=== PATIENT | female | born 1980 | race Caucasian/White ===

== ENCOUNTER 2017-06-18 14:51 | Emergency (ER) | payer OTHER ==
[2017-06-18 15:08] VITALS: RESP 18
--- NOTE | 2017-06-18 16:16 | ED ---
General Adult HPI - General Chief complaint: Allergic Reaction Stated complaint: poss allergic reaction to antibiotic Time Seen by Provider: 06/18/17 16:02 Source: patient, RN notes reviewed Mode of arrival: ambulatory Limitations: no limitations - History of Present Illness Initial comments: 36-year-old female presents emergency Department with chief complaint of possible ALLERGIC reaction. Patient states she was started on Keflex, Flonase, prednisone and Zyrtec yesterday. She states she went to [facility] was started on this for sinus infection. She states prior to that she had 3 days of nasal congestion. Patient states she felt worse so she went there for treatment. Patient reports ALLERGY to penicillin products. Patient denies any difficulty breathing or deploy saw this time. She states that she does feel some tingling of her tongue and lips. She states that she's taken 5 doses of Keflex. She has used Flonase, prednisone and Zyrtec on the past with no problems. - Related Data Home Medications Medication Instructions Recorded Confirmed No Known Home Medications [No 06/18/17 06/18/17 Known Home Medications] Allergies Allergy/AdvReac Type Severity Reaction Status Date / Time Penicillins Allergy Unknown Verified 06/18/17 15:08 Childhood Review of Systems ROS Statement: Those systems with pertinent positive or pertinent negative responses have been documented in the HPI. ROS Other: All systems not noted in ROS Statement are negative. Past Medical History Additional Past Medical History / Comment(s): pcos History of Any Multi-Drug Resistant Organisms: None Reported Past Surgical History: Section, Cholecystectomy Past Psychological History: No Psychological Hx Reported Smoking Status: Never smoker Past Alcohol Use History: Rare Past Drug Use History: None Reported General Exam Limitations: no limitations General appearance: alert, in no apparent distress Head exam: Present: atraumatic, normocephalic, normal inspection Eye exam: Present: normal appearance, PERRL, EOMI. Absent: scleral icterus, conjunctival injection, periorbital swelling ENT exam: Present: mucous membranes moist, TM's normal bilaterally, normal external ear exam. Absent: normal exam, normal oropharynx (Mild postnasal drainage swan secretions well there is no edema of the lips or tongue) Neck exam: Present: normal inspection, full ROM. Absent: tenderness, meningismus, lymphadenopathy Respiratory exam: Present: normal lung sounds bilaterally. Absent: respiratory distress, wheezes, rales, rhonchi, stridor Cardiovascular Exam: Present: regular rate, normal rhythm, normal heart sounds. Absent: systolic murmur, diastolic murmur, rubs, gallop, clicks Neurological exam: Present: alert, oriented X3, CN II-XII intact Course Vital Signs 06/18/17 15:04 Temperature 97.7 F Pulse Rate 102 H Respiratory 18 Rate Blood Pressure 138/75 O2 Sat by Pulse 97 Oximetry Medical Decision Making - Medical Decision Making 36-year-old female presented for tingling of her lips and tongue concern for ALLERGIC reaction to Keflex. She has tolerated all her medications in the past. Did explain that she is on steroids, antihistamines currently. She is in no obvious signs for anaphylaxis. She has no difficulty breathing or swallowing. Patient advised to discontinue the Keflex and follow-up with her PCP there is no signs of actual infection at this time I did explain that this most likely is ALLERGIES versus viral infection. Disposition Clinical Impression: Viral URI, Adverse effects of medication Disposition: HOME SELF-CARE Condition: Stable Instructions: Antibiotic Medication Allergy (ED) Additional Instructions: Please return to the Emergency Department if symptoms worsen or any other concerns. Is patient prescribed a controlled substance at d/c from ED?: No Referrals: Manolo Delacruz MD [Primary Care Provider] - 1-2 days Time of Disposition: 16:16
[2017-06-18 16:41] VITALS: BP 138/70; PULSE 89; TEMP 97.9
== END 2017-06-18 16:41 | disposition home or self-care (01) ==
LOC: EC 14:51
DX: J06.9 Acute upper respiratory infection, unspecified (principal); T36.1X5A Adverse effect of cephalosporins and other beta-lactam antibiotics, initial encounter; Z88.0 Allergy status to penicillin
CPT/HCPCS: 99283

== ENCOUNTER → 2017-08-11 | Outpatient (CLI) | payer OTHER ==
--- NOTE | 2017-08-11 09:07 | MM ---
Reason for exam: screening (asymptomatic). Baseline mammogram. History: Family history of breast cancer in paternal grandmother. Taking hormonal contraceptives for 15 years. Physical Findings: Nurse did not find any significant physical abnormalities on exam. MG Screening Mammo w CAD Bilateral CC and MLO view(s) were taken. There are scattered fibroglandular densities. There is no discrete abnormality. These results were verbally communicated with the patient and result sheet given to the patient on 08/11/17. ASSESSMENT: Negative, BI-RAD 1 RECOMMENDATION: Routine screening mammogram of both breasts at age 40. (unless clinical indication to start sooner)
== END ==
LOC: RADMAMWWP 08:10
PROVIDERS: ATTEND Family Medicine
DX: Z12.31 Encounter for screening mammogram for malignant neoplasm of breast (principal)
CPT/HCPCS: 77067

== ENCOUNTER 2020-05-06 08:35 | Emergency (ER) | payer BC, OTHER ==
[2020-05-06 08:41] VITALS: BP 130/85; PULSE 96; RESP 18; TEMP 98
[2020-05-06] MEDS ORDERED: TOPICAL SKIN ADHESIVE 1 EACH AMP TOPICAL ONE (09:16)
[2020-05-06] MEDS ORDERED: DIPH,PERTUS(ACELL)TETVAC-LF 0.5 ML VIAL IM ONE (09:16)
--- NOTE | 2020-05-06 09:21 | ED ---
Upper Extremity HPI - General Chief Complaint: Extremity Injury, Upper Stated Complaint: IHS Finger lac Time Seen by Provider: 05/06/20 08:45 Source: patient Mode of arrival: ambulatory Limitations: no limitations - History of Present Illness Initial Comments: 39-year-old female presenting today for chief complaint of left middle finger laceration. Patient states she cut her finger while at work. She states she was told she had to come in. Patient states that the laceration only needs glue. She is unsure last tetanus she denies any changes in ROM, or strength. Patient has no additional complaints. - Related Data Home Medications Medication Instructions Recorded Confirmed No Known Home Medications 06/18/17 06/18/17 Allergies Allergy/AdvReac Type Severity Reaction Status Date / Time Penicillins Allergy Unknown Verified 05/06/20 08:41 Childhood Review of Systems ROS Statement: Those systems with pertinent positive or pertinent negative responses have been documented in the HPI. ROS Other: All systems not noted in ROS Statement are negative. Past Medical History Past Medical History: Diabetes Mellitus Additional Past Medical History / Comment(s): pcos History of Any Multi-Drug Resistant Organisms: None Reported Past Surgical History: Section, Cholecystectomy Past Psychological History: No Psychological Hx Reported Smoking Status: Never smoker Past Alcohol Use History: Rare Past Drug Use History: None Reported General Exam - General Exam Comments Initial Comments: General: The patient is awake and alert, in no distress Eye: Pupils are equal, round and reactive to light, extra-ocular movements are intact. No nystagmus. There is normal conjunctiva bilaterally. No signs of icterus. Ears, nose, mouth and throat: There are moist mucous membranes and no oral lesions. Musculoskeletal: Normal ROM, no tenderness of the MCP, DIP and PIP joint of affected digit with strength 5/5. Sensation intact. Radial pulses equal bilaterally 2+. Neurological: A&O x 3. CN II-XII intact grossly, There are no obvious motor or sensory deficits. Coordination appears grossly intact. Speech is normal. Skin: Skin is warm and dry and no rashes. ~1cm laceration very superficial on ventral aspect of the left middle digit. Psychiatric: Cooperative, appropriate mood & affect, normal judgment. Limitations: no limitations Course Vital Signs 05/06/20 08:39 Temperature 98.0 F Pulse Rate 96 Respiratory 18 Rate Blood Pressure 130/85 O2 Sat by Pulse 99 Oximetry Medical Decision Making - Medical Decision Making 39yo female presenting for cc of laceration of left middle digit, 1cm very superficial laceration. Cleansed, exofin applied. discharged with return parameters for signs of infection/decreased ROM/strength> TDap was updated. Pt discharged appearing well. Disposition Clinical Impression: Superficial laceration of finger Disposition: HOME SELF-CARE Condition: Good Instructions (If sedation given, give patient instructions): Finger Laceration (ED), Skin Adhesive Care (ED) Additional Instructions: Please use medication as discussed. Please follow-up with family doctor in the next 2 days. Please return to emergency room if the symptoms increase or worsen or for any other concerns. Is patient prescribed a controlled substance at d/c from ED?: No Referrals: Manolo Delacruz MD [Primary Care Provider] - 1-2 days Time of Disposition: 09:21
== END 2020-05-06 09:50 | disposition home or self-care (01) ==
LOC: EC 08:35
DX: S61.213A Laceration without foreign body of left middle finger without damage to nail, initial encounter (principal); W45.8XXA Other foreign body or object entering through skin, initial encounter; E11.9 Type 2 diabetes mellitus without complications; Z23 Encounter for immunization
CPT/HCPCS: 90471; 90715; 99282

== ENCOUNTER → 2021-02-02 | Outpatient (CLI) | payer BC | END | disposition home or self-care (01) | LOC: LABWHC1 11:30 | PROVIDERS: ATTEND Family Medicine | DX: Z20.822 Contact with and (suspected) exposure to COVID-19 (principal) | CPT/HCPCS: 87502; U0003; C9803; U0005 ==

== ENCOUNTER → 2023-01-20 | Outpatient (CLI) | payer BC ==
[2023-01-21 02:11] LABS: HCT 43.5 % (37.2-46.3); HGB 14.3 g/dL (12.0-15.0); MCH 28.5 pg (27.0-32.0); MCHC 32.9 g/dL (32.0-37.0); MCV 86.8 FL (80.0-97.0); Mean Platelet Volume 11.1 FL (9.5-12.2); NRBC Per 100 WBC 0 X 10*3/uL (0.00-0.01); Platelet Count 327 X 10*3/uL (140-440); RBC 5.01 X 10*6/uL (4.10-5.20); RDW 13.4 % (11.5-14.5); WBC 10.34 X 10*3/uL (4.50-10.00)
[2023-01-21 02:57] LABS: ALT 50 U/L (8-44); AST 25 U/L (13-35); Albumin 4.1 g/dL (3.8-4.9); Albumin/Globulin Ratio 1.71 Ratio (1.60-3.17); Alkaline Phosphatase 45 U/L (41-126); BUN/Creat Ratio 24.43 Ratio (12.00-20.00); Blood Urea Nitrogen 17.1 mg/dL (9.0-27.0); Carbon Dioxide 20.9 mmol/L (21.6-31.8); Chloride 100 mmol/L (96-109); Globulin 2.4 g/dL (1.6-3.3); Glucose 227 mg/dL (70-110); Potassium 4.8 mmol/L (3.5-5.5); Sodium 137 mmol/L (135-145); Total Bilirubin 0.2 mg/dL (0.3-1.2); Total Protein 6.5 g/dL (6.2-8.2)
== END | disposition home or self-care (01) ==
LOC: LABWHC1 13:38
PROVIDERS: ATTEND Surgery
DX: E66.01 Morbid (severe) obesity due to excess calories (principal); K90.89 Other intestinal malabsorption; E55.9 Vitamin D deficiency, unspecified
CPT/HCPCS: 36415; 80053; 80323; 82306; 82607; 82746; 84425; 85027

== ENCOUNTER → 2023-01-20 | Outpatient (CLI) | payer BC ==
[2023-01-20 13:02] VITALS: BP 136/82; PULSE 97; RESP 16; TEMP 97.8; BMI 49.8
--- NOTE | 2023-01-20 15:23 | P.HPBAR ---
Bariatric H&P - History & Physicial H&P Date: 01/20/23 History & Physicial: Visit/CC: New Pt Patient initial contact: Initial weight: 128.82 kg Initial weight in pounds: 284.00 Height: 5 ft 3.25 in Initial BMI: 49.8 Last weight: Current weight: 128.82 kg Current weight in pounds: 284.00 Current BMI: 49.8 [place] body weight (based on NIH guidelines): 52.73 kg Excess body weight loss: 0.0% The patient is a 42 year-old F who presents for Bariatric Assessment. Patient here to discuss surgical weight loss methods. Patient is interested in sleeve gastrectomy. Current BMI 49.8. Patient has comorbidities including diabetes type 2, asthma, PCO S, hypercholesteremia, hypertension, hip arthritis. Surgical history includes and laparoscopic cholecystectomy. Patient has tried GLP-1 agonist with 30 pound weight loss. She then plateaued. Denies tobacco use. No GERD, no dysphagia. No history of DVT. Review of Systems The patient denies any acute changes in vision or hearing, no dysphagia or odynophagia, no chest pain or shortness of breath, no dysuria or hematuria, no headache, no runny nose, no rectal bleeding or melena, no unexplained weight loss Past Medical History Past Medical History: Diabetes Mellitus Additional Past Medical History / Comment(s): pcos History of Any Multi-Drug Resistant Organisms: None Reported Past Surgical History: Section, Cholecystectomy Past Psychological History: No Psychological Hx Reported Smoking Status: Never smoker Past Alcohol Use History: Rare Past Drug Use History: None Reported Surgical - Exam Vital Signs Temp Pulse Resp BP 97.8 F 97 16 136/82 01/20/23 12:56 01/20/23 12:56 01/20/23 12:56 01/20/23 12:56 Physical exam: General: Well-developed, well-nourished HEENT: Normocephalic, sclerae nonicteric Abdomen: Nontender, nondistended Extremities: No edema Neuro: Alert and oriented Bariatric Assessment & Plan (1) Morbid obesity with BMI of 45.0-49.9, adult Narrative/Plan: 42-year-old female with history of morbid obesity and comorbidities. Patient interested in sleeve gastrectomy. We discussed the risks, benefits, and average weight loss with various bariatric surgeries. She remains interested in sleeve gastrectomy at this time. We'll plan preoperative EGD. The risks of bleeding, infection, stenosis, stricture, leak, abscess, fistula formation, peritonitis, poor weight loss, reflux, vomiting, conversion to an open procedure, aborting sleeve gastrectomy, [place], PE, DVT, and were discussed. The patient understands and wishes to proceed. Status: Acute Bariatric Checklist Checklist: Plan: Checklist: EGD: 1. Hiatal hernia: 2. H. Pylori: HgbA1c: Vitamin D: Smoking: Never smoker Primary care physician referral: Robinson Delacruz Psychiatry clearance: Cardiology clearance: Sleep study: Diet journal: VTE risk score: VTE risk level: Rehab needs at discharge:
== END ==
LOC: BARWHC3 12:41
PROVIDERS: ATTEND Surgery
DX: E66.01 Morbid (severe) obesity due to excess calories (principal); E11.9 Type 2 diabetes mellitus without complications; J45.909 Unspecified asthma, uncomplicated; E78.00 Pure hypercholesterolemia, unspecified; I10 Essential (primary) hypertension; M16.10 Unilateral primary osteoarthritis, unspecified hip; Z87.42 Personal history of other diseases of the female genital tract; Z90.49 Acquired absence of other specified parts of digestive tract; Z88.0 Allergy status to penicillin; Z68.42 Body mass index [BMI] 45.0-49.9, adult
CPT/HCPCS: 99202

== ENCOUNTER 2023-03-29 10:25 | Day surgery (SDC) | payer BC ==
[~2023-03-29 10:25] MED LIST: LIDOCAINE 1% (10MG/ML) FOR IV START INTRADERMA PRN
[2023-03-29] MEDS: LACTATED RINGERS 1,000 ML IV SCH (10:58)
[2023-03-29 10:59] LABS: Glucose,Whole Blood 208 mg/dL (70-110)
[2023-03-29] MEDS ORDERED: PROPOFOL 10 MG/ML 20 ML VIAL IV ONE (10:59)
--- NOTE | 2023-03-29 11:00 | P.GSHP ---
History of Present Illness H&P Date: 03/29/23 Chief Complaint: GERD, presurgical 42-year-old female here for EGD. Patient being scheduled for sleeve gastrectomy. Patient with history of chronic reflux. Past Medical History Past Medical History: Asthma, Diabetes Mellitus, Osteoarthritis (OA) Additional Past Medical History / Comment(s): pcos. History of Any Multi-Drug Resistant Organisms: None Reported Past Surgical History: Section, Cholecystectomy Past Anesthesia/Blood Transfusion Reactions: Motion Sickness Additional Past Anesthesia/Blood Transfusion Reaction / Comment(s): POST EPIDURAL, HYPOTENSIVE. Past Psychological History: No Psychological Hx Reported Smoking Status: Never smoker Past Alcohol Use History: Rare Past Drug Use History: None Reported Medications and Allergies Home Medications Medication Instructions Recorded Confirmed Type Atorvastatin [Lipitor] 20 mg PO HS 02/01/23 03/24/23 History Losartan [Cozaar] 25 mg PO QAM 02/01/23 03/24/23 History Meloxicam [Mobic] 15 mg PO DAILY 02/01/23 03/24/23 History Montelukast [Singulair] 10 mg PO DIRECTED 02/01/23 03/24/23 History Tirzepatide [Mounjaro] 10 mg SQ WE 02/01/23 03/24/23 History metFORMIN HCL [Glucophage] 1,000 mg PO BID 02/01/23 03/24/23 History Allergies Allergy/AdvReac Type Severity Reaction Status Date / Time ketorolac [From Toradol] Allergy ANXIETY Verified 03/29/23 10:43 Penicillins Allergy Unknown Verified 03/29/23 10:43 Childhood Surgical - Exam Physical exam: General: Well-developed, well-nourished HEENT: Normocephalic, sclerae nonicteric Abdomen: Nontender, nondistended Extremities: No edema Neuro: Alert and oriented Results - Labs Abnormal Lab Results - Last 24 Hours (Table) 03/29/23 Range/Units 10:57 POC Glucose (mg/dL) 208 H (70-110) mg/dL Assessment and Plan (1) GERD (gastroesophageal reflux disease) Narrative/Plan: Will proceed with EGD at this time. Current Visit: Yes Status: Acute Code(s): K21.9 - GASTRO-ESOPHAGEAL REFLUX DISEASE WITHOUT ESOPHAGITIS SNOMED Code(s): 111583634
[2023-03-29 11:07] VITALS: RESP 16; TEMP 96.9
--- NOTE | 2023-03-29 11:11 | P.PCN ---
Date of Procedure: 03/29/23 Procedure(s) Performed: Preoperative Dx: GERD, presurgical Postoperative Dx: Gastritis Procedure: EGD with Bx Anesthesia: Sedation Endoscopist: Dr. Arguelles Specimens: Antrum, body of stomach Endoscopic Procedure: The patient was on the endoscopy table in the left decubitus position. The Olympus gastroscope was inserted into the oropharynx and passed under direct visualization to the region of the third portion of the duodenum. From that point the scope was slowly withdrawn inspecting all surfaces carefully. There were no neoplastic inflammatory or polypoid lesions throughout the duodenum. The pylorus was widely patent. The stomach was carefully inspected. There was gastritis present. Biopsies of the antrum took place. In the body of the stomach the gastritis was moderate in nature and additional biopsies were taken there. Retroflexion revealed a normal hiatus. The esophagus was then carefully examined. There were no neoplastic inflammatory or polypoid lesions throughout the visualized esophagus. The patient was then taken to the recovery room in stable condition per anesthesia guidelines. Recommendations: Await biopsy results. Begin antiacid therapy. Minimize NSAID use. Follow-up bariatric clinic.
[2023-03-29 11:18] LABS: Glucose,Whole Blood 200 mg/dL (70-110)
[2023-03-29 11:41] VITALS: BP 133/84; PULSE 78
== END 2023-03-29 11:43 | disposition home or self-care (01) ==
LOC: ORWHC2ENDO 10:25
PROVIDERS: ATTEND Surgery
DX: K29.50 Unspecified chronic gastritis without bleeding (principal); K21.9 Gastro-esophageal reflux disease without esophagitis; J45.909 Unspecified asthma, uncomplicated; E11.9 Type 2 diabetes mellitus without complications; M19.90 Unspecified osteoarthritis, unspecified site; E28.2 Polycystic ovarian syndrome; F10.90 Alcohol use, unspecified, uncomplicated; E66.01 Morbid (severe) obesity due to excess calories; Z90.49 Acquired absence of other specified parts of digestive tract; Z98.890 Other specified postprocedural states; Z79.1 Long term (current) use of non-steroidal anti-inflammatories (NSAID); Z88.0 Allergy status to penicillin; Z88.6 Allergy status to analgesic agent; Z79.51 Long term (current) use of inhaled steroids; Z79.84 Long term (current) use of oral hypoglycemic drugs; Z79.899 Other long term (current) drug therapy; Z68.43 Body mass index [BMI] 50.0-59.9, adult
CPT/HCPCS: 81025; 88305; 43239; J2704

== ENCOUNTER → 2023-04-19 | Outpatient (CLI) | payer BC ==
[2023-04-19 14:09] VITALS: BP 131/62; PULSE 111; RESP 16; TEMP 97.1; BMI 48.3
--- NOTE | 2023-04-19 14:44 | P.BASOAP ---
Subjective Progress Note Date: 04/19/23 Principal diagnosis: Morbid obesity 42-year-old female returns after recent EGD on 03/29. Patient had mild gastritis. Doing well. Remains interested in sleeve gastrectomy. No changes to her prior H&P. Objective - Vital Signs Vital signs: Vital Signs Temp 97.1 F L 04/19/23 13:58 Pulse 111 H 04/19/23 13:58 Resp 16 04/19/23 13:58 BP 131/62 04/19/23 13:58 Pulse Ox FiO2 Intake & Output 04/18/23 04/19/23 04/19/23 18:59 06:59 18:59 Weight 124.738 kg - Exam Abdomen: Soft, nontender, nondistended Assessment/Plan (1) Morbid obesity with BMI of 45.0-49.9, adult Narrative/Plan: 42-year-old female with morbid obesity. Patient remains interested in sleeve gastrectomy. Recent EGD findings discussed. Preoperative consent form along with risks and benefits discussed again in detail. Will schedule for laparoscopic da Natanael assisted sleeve gastrectomy, possible open in August. The risks of bleeding, infection, stenosis, stricture, leak, abscess, fistula formation, peritonitis, poor weight loss, reflux, vomiting, conversion to an open procedure, aborting sleeve gastrectomy, [place], PE, DVT, and were discussed. The patient understands and wishes to proceed. Plan: Date: 04/19/23 Initial Weight: 128.82 kg Initial BMI: 49.8 Current Weight: 124.738 kg Current BMI: 48.3 Type of Surgery: Total Volume in Band: Previous Volume: Volume Removed: Volume Added: Band Size:
== END | disposition home or self-care (01) ==
LOC: BARWHC3 13:49
PROVIDERS: ATTEND Surgery
DX: E66.01 Morbid (severe) obesity due to excess calories (principal); K29.70 Gastritis, unspecified, without bleeding; Z98.84 Bariatric surgery status; Z68.42 Body mass index [BMI] 45.0-49.9, adult; Z88.0 Allergy status to penicillin; Z88.6 Allergy status to analgesic agent
CPT/HCPCS: 99211

== ENCOUNTER → 2023-05-09 | Outpatient (CLI) | payer BC | END | disposition home or self-care (01) | LOC: LABPAT 14:19 | PROVIDERS: ATTEND Surgery | DX: Z01.818 Encounter for other preprocedural examination (principal); R94.31 Abnormal electrocardiogram [ECG] [EKG] | CPT/HCPCS: 93005 ==

== ENCOUNTER → 2023-05-30 | Outpatient (CLI) | payer BC ==
[2023-05-30 15:11] VITALS: BMI 49.9
== END ==
LOC: BARWHC3 12:54
PROVIDERS: ATTEND Surgery
DX: E66.01 Morbid (severe) obesity due to excess calories (principal); Z71.3 Dietary counseling and surveillance; Z68.43 Body mass index [BMI] 50.0-59.9, adult; Z88.0 Allergy status to penicillin
CPT/HCPCS: 97804

== ENCOUNTER 2023-07-08 21:35 | Emergency (ER) | payer BC, OTHER ==
[2023-07-08 21:57] VITALS: RESP 20
--- NOTE | 2023-07-08 23:24 | XR ---
ADDENDUM - Added by Colten Cesar MD on 07/08/2023 11:25 PM (-04:00) EXAM: XR Right Foot Complete, 3 or More Views CLINICAL HISTORY: ITS.REASON XR Reason: pain TECHNIQUE: Frontal, lateral and oblique views of the right foot. COMPARISON: No relevant prior studies available. FINDINGS: No acute fracture or subluxation. Intact base of the fifth metatarsal. Heel spur measures 9 mm. No Lisfranc malalignment. IMPRESSION: No acute findings. EXAM: XR Right Foot Complete, 3 or More Views CLINICAL HISTORY: ITS.REASON XR Reason: pain TECHNIQUE: Frontal, lateral and oblique views of the right foot. COMPARISON: No relevant prior studies available. FINDINGS: Bones/joints: Mild joint space narrowing of the medial compartment. Osteophytic spurring of the medial and lateral compartments. No acute fracture. No dislocation. Soft tissues: Unremarkable. No radiopaque foreign body. IMPRESSION: No acute findings in the right foot.
--- NOTE | 2023-07-08 23:25 | XR ---
EXAM: XR Left Knee, 3 Views CLINICAL HISTORY: ITS.REASON XR Reason: pain TECHNIQUE: Three views of the left knee. COMPARISON: No relevant prior studies available. FINDINGS: Bones/joints: Mild joint space narrowing of the medial compartment. Osteophytic spurring of the medial and lateral compartments. No acute fracture. No dislocation. Soft tissues: Unremarkable. No radiopaque foreign body. IMPRESSION: No acute fracture. No dislocation.
--- NOTE | 2023-07-08 23:56 | ED ---
General Adult HPI - General Chief complaint: Extremity Injury, Lower Stated complaint: Fall Time Seen by Provider: 07/08/23 23:30 Source: patient, RN notes reviewed Mode of arrival: ambulatory Limitations: no limitations - History of Present Illness Initial comments: 42-year-old female presents to the emergency department for evaluation of right foot and left knee injury. Patient states that she was working today when she tripped and fell. Patient reported that she fell onto her left knee and twisted her right ankle. She states that she is able to ambulate but it is painful to her left knee. She denies any other injury. Denies head injury. Denies blood thinners. - Related Data Home Medications Medication Instructions Recorded Confirmed Atorvastatin [Lipitor] 20 mg PO HS 02/01/23 04/21/23 Losartan [Cozaar] 25 mg PO QAM 02/01/23 04/21/23 Meloxicam [Mobic] 15 mg PO DAILY 02/01/23 04/21/23 Montelukast [Singulair] 10 mg PO DIRECTED 02/01/23 04/21/23 Tirzepatide [Mounjaro] 10 mg SQ WE 02/01/23 04/21/23 metFORMIN HCL [Glucophage] 1,000 mg PO BID 02/01/23 04/21/23 Previous Rx's Medication Instructions Recorded Omeprazole [PriLOSEC] 20 mg PO -BRKFST #90 cap 03/29/23 Allergies Allergy/AdvReac Type Severity Reaction Status Date / Time ketorolac [From Toradol] Allergy ANXIETY Verified 07/08/23 21:48 Penicillins Allergy Unknown Verified 07/08/23 21:48 Childhood Review of Systems ROS Statement: Those systems with pertinent positive or pertinent negative responses have been documented in the HPI. ROS Other: All systems not noted in ROS Statement are negative. Past Medical History Past Medical History: Asthma, Diabetes Mellitus, Osteoarthritis (OA) Additional Past Medical History / Comment(s): pcos. History of Any Multi-Drug Resistant Organisms: None Reported Past Surgical History: Section, Cholecystectomy Past Anesthesia/Blood Transfusion Reactions: Motion Sickness Additional Past Anesthesia/Blood Transfusion Reaction / Comment(s): POST EPIDURAL, HYPOTENSIVE. Past Psychological History: No Psychological Hx Reported Smoking Status: Never smoker Past Alcohol Use History: None Reported Past Drug Use History: None Reported General Exam Limitations: no limitations General appearance: alert, in no apparent distress Head exam: Present: atraumatic, normocephalic, normal inspection Eye exam: Present: normal appearance, PERRL, EOMI. Absent: scleral icterus, conjunctival injection, periorbital swelling ENT exam: Present: normal exam, mucous membranes moist Respiratory exam: Present: normal lung sounds bilaterally. Absent: respiratory distress, wheezes, rales, rhonchi, stridor Cardiovascular Exam: Present: regular rate, normal rhythm, normal heart sounds. Absent: systolic murmur, diastolic murmur, rubs, gallop, clicks Extremities exam: Present: normal inspection, full ROM, normal capillary refill. Absent: tenderness, pedal edema, joint swelling, calf tenderness Back exam: Present: normal inspection Neurological exam: Present: alert, oriented X3 Psychiatric exam: Present: normal affect, normal mood Skin exam: Present: warm, dry, normal color, abrasion (Small abrasion to left knee). Absent: intact, rash Course Vital Signs 07/08/23 07/09/23 21:46 00:21 Temperature 98.2 F 98.1 F Pulse Rate 102 H 119 H Respiratory 20 20 Rate Blood Pressure 125/84 145/93 O2 Sat by Pulse 99 99 Oximetry Medical Decision Making - Medical Decision Making Was pt. sent in by a medical professional or institution (DRAGAN Eckert, PHYSIOLOGICAL CHEMIST, urgent care, hospital, or [place] [facility] care facility...) When possible be specific @ -No Did you speak to anyone other than the patient for history (EMS, parent, family, police, friend...)? What history was obtained from this source @ -No Did you review nursing and triage notes (agree or disagree)? Why? @ -I reviewed and agree with nursing and triage notes Were old charts reviewed (outside hosp., previous admission, EMS record, old EKG, old radiological studies, urgent care reports/EKG's, [place] health care facility records)? Report findings @ -No old charts were reviewed Differential Diagnosis (chest pain, altered mental status, abdominal pain women, abdominal pain men, vaginal bleeding, weakness, fever, dyspnea, syncope, headache, dizziness, GI bleed, back pain, seizure, CVA, palpatations, mental health, musculoskeletal)? @ -Differential Musculoskeletal Muscular strain, contusion, ligament sprain, fracture, arthritis, septic arthritis, bursitis, cellulitis, muscle spasm, nerve compression, DVT, arterial occlusion, herpes zoster, electrolyte abnormality, tumor.... This is not meant to be in all inclusive list EKG interpreted by me (3pts min.). @ -None X-rays interpreted by me (1pt min.). @ -X-ray of the left knee was obtained which shows no evidence of acute fracture X-ray of the right foot shows no evidence of acute fracture CT interpreted by me (1pt min.). @ -None done U/S interpreted by me (1pt. min.). @ -None done What testing was considered but not performed or refused? (CT, X-rays, U/S, labs)? Why? @ -None What meds were considered but not given or refused? Why? @ -None Did you discuss the management of the patient with other professionals (professionals i.e. , PA, PHYSIOLOGICAL CHEMIST, lab, RT, psych nurse, forensic social worker, machine packager, teacher, community arts officer, supervisor case loading)? Give summary @ -No Was smoking cessation discussed for >3mins.? @ -No Was critical care preformed (if so, how long)? @ -No Were there social determinants of health that impacted care today? How? (Homelessness, low income, unemployed, alcoholism, drug addiction, transportation, low edu. Level, literacy, decrease access to med. care, correction, rehab)? @ -No Was there de-escalation of care discussed even if they declined (Discuss DNR or withdrawal of care, Hospice)? DNR status @ -No What co-morbidities impacted this encounter? (DM, HTN, Smoking, COPD, CAD, Cancer, CVA, ARF, Chemo, Hep., AIDS, mental health diagnosis, sleep apnea, morbid obesity)? @ -None Was patient admitted / discharged? Hospital course, mention meds given and route, prescriptions, significant lab abnormalities, going to OR and other pertinent info. @ -Discharge. Patient presented to the emergency department for evaluation of left knee and right foot pain following a fall. She denies any other injuries or blood thinners. X-rays were obtained which show no evidence of acute fracture. She is able to ambulate with minimal limitation. Patient advised to follow-up with her primary care provider. Recommended RICE, Tylenol Motrin for pain and swelling. She is understanding agreeable with this plan. Patient stable at time of discharge. Undiagnosed new problem with uncertain prognosis? @ -No Drug Therapy requiring intensive monitoring for toxicity (Heparin, Nitro, Insulin, Cardizem)? @ -No Were any procedures done? @ -No Diagnosis/symptom? @ -Knee contusion Acute, or Chronic, or Acute on Chronic? @ -Acute Uncomplicated (without systemic symptoms) or Complicated (systemic symptoms)? @ -uncomplicated Side effects of treatment? @ -No Exacerbation, Progression, or Severe Exacerbation? @ -No Poses a threat to life or bodily function? How? (Chest pain, [place], [place], pneumonia, PE, COPD, DKA, ARF, appy, cholecystitis, CVA, Diverticulitis, Homicidal, Suicidal, threat to staff... and all critical care pts) @ -No Disposition Clinical Impression: Knee contusion Disposition: HOME SELF-CARE Condition: Stable Instructions (If sedation given, give patient instructions): Knee Sprain (ED), Foot Sprain (ED) Additional Instructions: Please utilize tylenol and motrin for pain. Rest, ice, elevation. Follow up with your primary care provider. Return to the emergency department for new or worsening symptoms. Is patient prescribed a controlled substance at d/c from ED?: No Referrals: Manolo Delacruz MD [Primary Care Provider] - 1-2 days
[2023-07-09 01:19] VITALS: BP 145/93; PULSE 119; TEMP 98.1
== END 2023-07-09 00:21 | disposition home or self-care (01) ==
LOC: EC 21:35
DX: S80.02XA Contusion of left knee, initial encounter (principal); Z88.0 Allergy status to penicillin; Z88.8 Allergy status to other drugs, medicaments and biological substances; Z90.49 Acquired absence of other specified parts of digestive tract; W01.0XXA Fall on same level from slipping, tripping and stumbling without subsequent striking against object, initial encounter
CPT/HCPCS: 99284

== ENCOUNTER → 2023-08-15 | Outpatient (CLI) | payer BC ==
[2023-08-15 10:36] LABS: Basophils # (A) 0.1 k/uL (0-0.2); Basophils % (A) 1 %; Eosinophils # (A) 0.4 k/uL (0-0.7); Eosinophils % (A) 4 %; HCT 41.4 % (34.0-46.0); HGB 13.2 gm/dL (11.4-16.0); Lymphocytes # (A) 1.9 k/uL (1.0-4.8); Lymphocytes % (A) 18 %; MCH 28.5 pg (25.0-35.0); MCV 88.9 fL (80.0-100.0); Monocytes # (A) 0.5 k/uL (0-1.0); Monocytes % (A) 4 %; Neutrophils # (A) 7.8 k/uL (1.3-7.7); Neutrophils % (A) 72 %; Platelet Count 285 k/uL (150-450); RBC 4.65 m/uL (3.80-5.40); RDW 13.6 % (11.5-15.5); WBC 10.8 k/uL (3.8-10.6)
[2023-08-15 16:06] LABS: ALT 56 U/L (8-44); AST 33 U/L (13-35); Albumin 3.9 g/dL (3.8-4.9); Albumin/Globulin Ratio 1.86 Ratio (1.60-3.17); Alkaline Phosphatase 45 U/L (41-126); Blood Urea Nitrogen 11.8 mg/dL (9.0-27.0); Carbon Dioxide 19.9 mmol/L (21.6-31.8); Chloride 106 mmol/L (96-109); Globulin 2.1 g/dL (1.6-3.3); Glucose 178 mg/dL (70-110); Potassium 4.1 mmol/L (3.5-5.5); Sodium 139 mmol/L (135-145); Total Bilirubin 0.2 mg/dL (0.3-1.2)
== END | disposition home or self-care (01) ==
LOC: LABPAT 10:02
PROVIDERS: ATTEND Surgery
DX: Z01.812 Encounter for preprocedural laboratory examination (principal)
CPT/HCPCS: 80053; 85025; 86850; 86900; 86901

== ENCOUNTER → 2023-08-17 | Outpatient (CLI) | payer BC | END | disposition home or self-care (01) | LOC: LABPAT 12:54 | PROVIDERS: ATTEND Surgery | DX: Z01.812 Encounter for preprocedural laboratory examination (principal); R79.9 Abnormal finding of blood chemistry, unspecified | CPT/HCPCS: 83036 ==

== ENCOUNTER 2023-08-22 06:12 | Observation (INO) | payer BC ==
--- NOTE | 2023-08-21 13:39 | P.GSHP ---
History of Present Illness H&P Date: 08/21/23 Chief Complaint: Morbid obesity 42-year-old female seen initially last January for surgical weight loss. Patient interested in sleeve gastrectomy. Presenting BMI 49.8. Recent BMI 48.0. Patient with history of type 2 diabetes asthma PCOS hypercholesterolemia hypertension arthritis. Patient underwent recent EGD showing mild gastritis. Remains interested in sleeve gastrectomy at this time. No history of DVT or dysphagia. No tobacco use. Patient has had significant weight loss with her preoperative diet. Past Medical History Past Medical History: Asthma, Diabetes Mellitus, Osteoarthritis (OA) Additional Past Medical History / Comment(s): pcos. History of Any Multi-Drug Resistant Organisms: None Reported Past Surgical History: Section, Cholecystectomy Additional Past Surgical History / Comment(s): EGD Past Anesthesia/Blood Transfusion Reactions: Motion Sickness Additional Past Anesthesia/Blood Transfusion Reaction / Comment(s): POST EPIDURAL, HYPOTENSIVE. Smoking Status: Never smoker - Past Family History Mother Family Medical History: No Reported History Medications and Allergies Home Medications Medication Instructions Recorded Confirmed Type Atorvastatin [Lipitor] 20 mg PO HS 02/01/23 08/16/23 History Losartan [Cozaar] 25 mg PO QAM 02/01/23 08/16/23 History Montelukast [Singulair] 10 mg PO DAILY 02/01/23 08/16/23 History metFORMIN HCL [Glucophage] 1,000 mg PO BID 02/01/23 08/16/23 History Omeprazole [PriLOSEC] 20 mg PO AC-BRKFST #90 cap 03/29/23 08/16/23 Rx Tirzepatide [Mounjaro] 12.5 mg SQ WE 08/16/23 08/16/23 History Allergies Allergy/AdvReac Type Severity Reaction Status Date / Time ketorolac [From Toradol] Allergy ANXIETY Verified 08/16/23 13:48 Penicillins Allergy Unknown Verified 08/16/23 13:48 Childhood Surgical - Exam Physical exam: General: Well-developed, well-nourished HEENT: Normocephalic, sclerae nonicteric Abdomen: Nontender, nondistended Extremities: No edema Neuro: Alert and oriented Assessment and Plan (1) Morbid obesity with BMI of 45.0-49.9, adult Narrative/Plan: 42-year-old female with morbid obesity and comorbidities. Patient remains interested in sleeve gastrectomy. Will proceed with laparoscopic da Natanael assisted sleeve gastrectomy, possible open at this time. The risks of bleeding, infection, stenosis, stricture, leak, abscess, fistula formation, peritonitis, poor weight loss, reflux, vomiting, conversion to an open procedure, aborting sleeve gastrectomy, [place], PE, DVT, and were discussed. The patient understands and wishes to proceed. Status: Acute Code(s): E66.01 - MORBID (SEVERE) OBESITY DUE TO EXCESS CALORIES; Z68.42 - BODY MASS INDEX [BMI] 45.0-49.9, ADULT SNOMED Code(s): 928154508
[~2023-08-22 06:12] MED LIST changes: -LIDOCAINE 1% (10MG/ML) FOR IV START INTRADERMA PRN; +ONDANSETRON 4 MG/2 ML VIAL IVP PRN
[2023-08-22] MEDS ORDERED: LIDOCAINE 1% (10MG/ML) FOR IV START INTRADERMA PRN (06:32)
[2023-08-22 07:11] LABS: Glucose,Whole Blood 128 mg/dL (70-110)
[2023-08-22] MEDS: IV FLUID CONTINUATION 1,000 ML IV ONE ×2 (07:12→10:16)
[2023-08-22] MEDS: ONDANSETRON 4 MG/2 ML VIAL IVP ONE (07:15)
[2023-08-22] MEDS: ACETAMINOPHEN TAB 500 MG TAB PO PRN (07:16)
[2023-08-22] MEDS: ENOXAPARIN 40 MG/0.4 ML SYRINGE SQ PRN (07:16)
[2023-08-22] MEDS: LACTATED RINGERS 1,000 ML IV SCH (07:22)
[2023-08-22] MEDS ORDERED: GLYCOPYRROLATE 0.2 MG/ML 2 ML VIAL ONE (07:43)
[2023-08-22] MEDS ORDERED: fentaNYL (PF) 50 MCG/ML 2 ML AMP ONE (07:43)
[2023-08-22] MEDS ORDERED: SUCCINYLCHOLINE CHLORIDE 200 MG/10 ML VIAL IV ONE (07:43)
[2023-08-22] MEDS ORDERED: NEOSTIGMINE 1 MG/ML 10 ML VIAL ONE (07:43)
[2023-08-22] MEDS ORDERED: ROCURONIUM 10 MG/ML (5 ML VIAL) IV ONE (07:43)
[2023-08-22] MEDS ORDERED: PROPOFOL 10 MG/ML 20 ML VIAL IV ONE (07:43)
[2023-08-22] MEDS ORDERED: LIDOCAINE 1% INJ 10MG/ML (20 ML MDV) ONE (07:43)
[2023-08-22] MEDS: ceFAZolin 3 GM in SODIUM CHLORIDE 0.9% 100 ML IVPB PRN (07:48)
[2023-08-22] MEDS: BUPIVACAINE (PF) 0.25% 30 ML VIAL SQ ONE (08:08)
[2023-08-22] MEDS: METHYLENE BLUE 50 MG/10 ML AMPUL IRRIGATION ONE (08:13)
[2023-08-22] MEDS ORDERED: diphenhydrAMINE 50 MG/ML 1 ML VIAL IVP PRN (09:26)
[2023-08-22] MEDS ORDERED: NALOXONE 0.4 MG/ML 1 ML VIAL IV PRN (09:26)
[2023-08-22] MEDS ORDERED: HYOSCYAMINE ORAL DROPS 1.875 MG/15 ML BOTTLE PO PRN (09:26)
--- NOTE | 2023-08-22 09:30 | P.OP ---
Date of Procedure: 08/22/23 Procedure(s) Performed: PREOPERATIVE DIAGNOSIS: Morbid obesity, diabetes, hypercholesterolemia, hypertension, PCOS, arthritis POSTOPERATIVE DIAGNOSIS: Same PROCEDURE: Da Natanael assisted laparoscopic sleeve gastrectomy SURGEON: Kindra EBL: Minimal ANESTHESIA: General COMPLICATIONS: None OPERATIVE PROCEDURE: Patient was placed in the operating table in the supine position. The patient was then placed under general anesthesia at that time. The abdomen was prepped and draped in the usual sterile fashion. A 5 mm optical trocar was placed in the left upper quadrant 20 cm inferior to the xiphoid process. Insufflation took place up to 15 mmHg. No adhesions were seen. A 5 mm subxiphoid incision was made and the medium Clara retractor was used to elevate the left lobe of liver anteriorly. This was held in place using the fixed arm retractor. An additional 12 mm trocar was placed in the right p aramedian location and 2 additional 8 mm trochars were placed in the left upper quadrant one medial and one lateral to the initially placed optical trocar. All of these trochars were placed along the same plane. The initial 5 was then switched to an 8 mm trocar. The robot was then docked appropriately. The 8 mm camera was placed in the left paramedian trocar site down viewing. A fenestrated bipolar was placed in arm 1, arm 3 had the vessel sealer, arm 4 had the small grasper retractor. The hiatus was inspected and there was no visible hiatal hernia. At that point I moved to the distal aspect of the greater curvature the stomach. The short gastric vasculature were divided using the vessel sealer. This dissection took place distally until we were 4 cm from the pylorus. The posterior adhesions were divided as well. The dissection then took place proximally along the stomach until the posterior short gastrics were divided and the fundus of the stomach was fully mobilized. Once the stomach was fully mobilized the blunt tipped 40-Yoruba bougie dilator was advanced into the stomach and advanced all the way to the prepyloric location. The patient's stomach by palpation seemed to be of average thickness. The first firing of the stapler was taken 4 cm from the pylorus. This was a green load staple load. The next 2 loads were blue. The next 2 loads were blue with [place] seam guard. The last load only covered a small portion of the fundus and this was a blue load without SEAMGUARD. The stomach was then placed in the right upper quadrant after it was fully excised. The oral gastric tube was reinserted. The stomach was insufflated with approximately 100 mL of methylene blue. No evidence of leak or obstruction was seen. Pressure was then dropped to 8 mm for 2-3 m inutes. The staple line was inspected and no bleeding was seen. Tisseel fibrin glue was then used along the length of the staple line. The robot was then undocked. The da Natanael laparoscope was used and the stomach was removed from the 12 mm trocar site without difficulty. The fascia at the 12mm site was closed using [id number] 0 Vicryl sutures with the laparoscopic suture passer and Robbin Bety technique. The insufflation was evacuated. The skin at all 5 incisions were closed using 4-0 Monocryl sutures. Skin glue was then applied. DISPOSITION: Stable to recovery room
[2023-08-22 09:44] LABS: Glucose,Whole Blood 175 mg/dL (70-110)
[2023-08-22] MEDS: HYDROmorphone 0.5 MG/0.5 ML SYRINGE IVP PRN ×2 (09:50→15:41)
[2023-08-22] MEDS: droPERidol 5 MG/2 ML VIAL IVP ONE (09:58)
[2023-08-22] MEDS: ACETAMINOPHEN IV (For NPO) 1,000 MG in EMPTY BAG 1 BAG IVPB SCH (13:19)
[2023-08-22] MEDS: ALBUTEROL NEBULIZED 2.5 MG/3 ML INHALATION SCH (15:26)
[2023-08-22] MEDS: ONDANSETRON 4 MG/2 ML VIAL IVP PRN (15:42)
[2023-08-22] MEDS: SIMETHICONE 80 MG CHEWABLE PO PRN (15:47)
[2023-08-22] MEDS ORDERED: DEXTROSE 50% SYRINGE 50 ML IVP PRN ×2 (16:02)
[2023-08-22 16:33] LABS: Glucose,Whole Blood 190 mg/dL (70-110)
[2023-08-22] MEDS: INSULIN ASPART (NovoLOG) 100 UNIT/ML VIAL SQ SCH (17:50)
[2023-08-22] MEDS: 0.9% NACL WITH KCL 20 MEQ/L 1,000 ML IV SCH (17:52)
[2023-08-22 21:06] LABS: Glucose,Whole Blood 144 mg/dL (70-110)
[2023-08-23] MEDS: ENOXAPARIN 40 MG/0.4 ML SYRINGE SQ SCH (05:17)
[2023-08-23] MEDS: 0.9% NACL WITH KCL 20 MEQ/L 1,000 ML IV SCH (07:55)
[2023-08-23] MEDS: PANTOPRAZOLE 40 MG/10 ML VIAL IV SCH (07:55)
[2023-08-23 08:43] LABS: Basophils # (A) 0.06 X 10*3/uL (0.00-0.10); Basophils % (A) 0.3 %; Eosinophils # (A) 0.03 X 10*3/uL (0.04-0.35); Eosinophils % (A) 0.2 %; HCT 40.1 % (37.2-46.3); HGB 13.1 g/dL (12.0-15.0); Lymphocytes # (A) 1.44 X 10*3/uL (0.90-5.00); Lymphocytes % (A) 8.4 %; MCH 28.4 pg (27.0-32.0); MCHC 32.7 g/dL (32.0-37.0); MCV 86.8 FL (80.0-97.0); Mean Platelet Volume 11.5 FL (9.5-12.2); Monocytes # (A) 0.86 X 10*3/uL (0.20-1.00); NRBC Per 100 WBC 0 X 10*3/uL (0.00-0.01); Neutrophils # (A) 14.76 X 10*3/uL (1.80-7.70); Neutrophils % (A) 85.6 %; Platelet Count 317 X 10*3/uL (140-440); RBC 4.62 X 10*6/uL (4.10-5.20); RDW 13.3 % (11.5-14.5); WBC 17.23 X 10*3/uL (4.50-10.00)
[2023-08-23] MEDS: HYDROmorphone 1 MG/ML 1 ML SYRINGE IVP PRN (09:23)
[2023-08-23 12:02] LABS: Glucose,Whole Blood 177 mg/dL (70-110)
[2023-08-23] MEDS: ACETAMINOPHEN IV (For NPO) 1,000 MG in EMPTY BAG 1 BAG IVPB SCH (12:08)
[2023-08-23 12:12] LABS: Blood Urea Nitrogen <3.5 mg/dL (9.0-27.0); Calcium 8.3 mg/dL (8.7-10.3); Carbon Dioxide 12.2 mmol/L (21.6-31.8); Chloride 104 mmol/L (96-109); Magnesium 1.7 mg/dL (1.5-2.4); Phosphorus 2.5 mg/dL (2.4-5.1); Sodium 136 mmol/L (135-145)
[2023-08-23] MEDS: SCOPOLAMINE 1 MG/72 HR PATCH TRANSDERM SCH (12:19)
[2023-08-23] MEDS: LOSARTAN 25 MG TAB PO SCH (12:39)
[2023-08-23 12:42] VITALS: BMI 47.2
[2023-08-23] MEDS: DEXAMETHASONE SOD PHOSPHATE 4 MG/ML 1 ML VIAL IVP SCH (14:11)
--- NOTE | 2023-08-23 15:06 | P.PN ---
Subjective Progress Note Date: 08/23/23 CHIEF COMPLAINT: Morbid obesity HISTORY OF PRESENT ILLNESS: Postop day #1 status post sleeve gastrectomy. Patient complaining of nausea especially with the Dilaudid. She had mild tachycardia now resolved. She is having flatus. Denies any difficulty urinating. Upper GI results are pending. Afebrile. WBC elevated at 17.23. Hemoglobin A1c 9.1 PHYSICAL EXAM: VITAL SIGNS: Reviewed. GENERAL: Well-developed in no acute distress. ABDOMEN: Soft. Nondistended. Abdominal binder in place NEUROLOGIC: Alert and oriented. Cranial nerves II through XII grossly intact. ASSESSMENT: 1. Morbid obesity PLAN: -Awaiting upper GI results and then will start bariatric clear liquid diet -Leukocytosis will repeat CBC in a.m. -Scopolamine and Decadron added for nausea -Continue IV fluids -Continue pain management -Encourage patient to ambulate -DVT prophylaxis Lovenox Physician Document Preparation Specialist note has been reviewed by physician. Signing provider agrees with the documented findings, assessment, and plan of care. I have personally seen and examined the patient, reviewed the TRANSPORTATION OFFICER /PAs history, exam and MDM and agree with the assessment and plan as written. Based on total visit time, I have performed more than 50% of the visit. As above: Patient doing well today. Mild soreness at the extraction site. Labs noted. Repeat CBC tomorrow. Begin liquids. Objective - Vital Signs Vital signs: Vital Signs Temp 98.4 F 08/23/23 14:00 Pulse 80 08/23/23 14:00 Resp 18 08/23/23 14:00 BP 112/73 08/23/23 14:00 Pulse Ox 96 08/23/23 14:00 FiO2 Intake & Output 08/22/23 08/23/23 08/23/23 18:59 06:59 18:59 Intake Total 1100 Output Total 305 Balance 795 Weight 121 kg 121 kg Intake: IV 1100 Output: Urine 300 Estimated Blood Loss 5 Other: # Voids 1 1 - Labs CBC & Chem 7: 08/23/23 04:39 08/23/23 04:39 Labs: Abnormal Lab Results - Last 24 Hours (Table) 08/22/23 08/22/23 08/23/23 Range/Units 16:31 21:05 04:39 WBC (4.50-10.00) X 10*3/uL Immature Gran # (0.00-0.04) X 10*3/uL Neutrophils # (1.80-7.70) X 10*3/uL Eosinophils # (0.04-0.35) X 10*3/uL Carbon Dioxide (21.6-31.8) mmol/L Anion Gap (4.00-12.00) mmol/L BUN (9.0-27.0) mg/dL Creatinine (0.6-1.5) mg/dL POC Glucose (mg/dL) 190 H 144 H (70-110) mg/dL Hemoglobin A1c 9.1 H (<=6.0) % Calcium (8.7-10.3) mg/dL 08/23/23 08/23/23 08/23/23 Range/Units 04:39 04:39 12:00 WBC 17.23 H (4.50-10.00) X 10*3/uL Immature Gran # 0.08 H (0.00-0.04) X 10*3/uL Neutrophils # 14.76 H (1.80-7.70) X 10*3/uL Eosinophils # 0.03 L (0.04-0.35) X 10*3/uL Carbon Dioxide 12.2 L (21.6-31.8) mmol/L Anion Gap 19.80 H (4.00-12.00) mmol/L BUN <3.5 L (9.0-27.0) mg/dL Creatinine 0.5 L (0.6-1.5) mg/dL POC Glucose (mg/dL) 177 H (70-110) mg/dL Hemoglobin A1c (<=6.0) % Calcium 8.3 L (8.7-10.3) mg/dL
[2023-08-23 16:43] LABS: Glucose,Whole Blood 164 mg/dL (70-110)
[2023-08-23 21:04] LABS: Glucose,Whole Blood 188 mg/dL (70-110)
[2023-08-23] MEDS: ATORVASTATIN 20 MG TAB PO SCH (21:23)
[2023-08-23] MEDS: metFORMIN 500 MG TAB PO SCH (21:23)
--- NOTE | 2023-08-23 21:51 | FL ---
EXAMINATION TYPE: FL UGI DATE OF EXAM: 08/23/2023 COMPARISON: None HISTORY: Post gastric sleeve TECHNIQUE: A single contrast material UGI study is performed. FINDINGS: Contrast passes from the distal esophagus through the gastric sleeve with no significant he sitancy. No extravasation of contrast is evident. No free air is noted during this examination. Overhead radiographs were obtained which are unremarkable. IMPRESSION: 1. Normal post gastric sleeve without obstruction or hesitancy. No extravasation.
--- NOTE | 2023-08-24 02:04 | P.CONS ---
History of Present Illness - Reason for Consult Consult date: 08/23/23 Medical management - Chief Complaint Status post sleeve gastrectomy - History of Present Illness Patient is a 43-year-old female with a past medical history of diabetes type 2 onc-xdurpnw-olfsuekot on Tirzepatide, asthma, osteoarthritis and prior history of smoking and cholecystectomy was admitted to the hospital for sleeve gastrectomy. Patient is s/p sleeve gastrectomy postoperative day 1. Complaining of nausea. Patient is tolerating bariatric diet. No complaints of chest pain or shortness of breath. No fever no chills. No cough or sputum production. Denies any headache or dizziness. Laboratory data showed WBC 17.2 hemoglobin 13.1 and platelets 319 sodium 136 potassium 4.0 chloride 104 bicarb is 12.2 and anion gap 19.8 BUN less than 3.5 and creatinine 0.5 A1c 9.1 and magnesium 1.7. Review of Systems Constitutional: Patient denies any fever or chills . No generalized weakness or weight loss. Abdomen: Patient does complain of nausea. No shortness of vomiting. No complaints diarrhea and abdominal pain. Cardiovascular: Patient denies any chest pain or short of breath no palpitations. Respiratory: patient denied any cough or sputum production. No shortness of breath Neurologic: Patient denied any numbness or tingling. no headache. Musculoskeletal: Patient denies any complaints of joint swelling or deformity. Skin: Negative Psychiatric: Negative Endocrine: No heat or cold intolerance. No recent weight gain. Genitourinary: No dysuria or hematuria. All other 14 point ROS negative except the above Past Medical History Past Medical History: Asthma, Diabetes Mellitus, Osteoarthritis (OA) Additional Past Medical History / Comment(s): pcos. History of Any Multi-Drug Resistant Organisms: None Reported Past Surgical History: Section, Cholecystectomy Additional Past Surgical History / Comment(s): EGD, laprascopic gastric sleeve. Past Anesthesia/Blood Transfusion Reactions: Motion Sickness Additional Past Anesthesia/Blood Transfusion Reaction / Comm: POST EPIDURAL, HYPOTENSIVE. Past Psychological History: No Psychological Hx Reported Smoking Status: Former smoker Past Alcohol Use History: None Reported Past Drug Use History: None Reported - Past Family History Mother Family Medical History: No Reported History Medications and Allergies Home Medications Medication Instructions Recorded Confirmed Type Atorvastatin [Lipitor] 20 mg PO HS 02/01/23 08/22/23 History Losartan [Cozaar] 25 mg PO QAM 02/01/23 08/22/23 History Montelukast [Singulair] 10 mg PO DAILY 02/01/23 08/22/23 History metFORMIN HCL [Glucophage] 1,000 mg PO BID 02/01/23 08/22/23 History Omeprazole [PriLOSEC] 20 mg PO AC-BRKFST #90 cap 03/29/23 08/22/23 Rx Tirzepatide [Mounjaro] 12.5 mg SQ WE 08/16/23 08/22/23 History Allergies Allergy/AdvReac Type Severity Reaction Status Date / Time ketorolac [From Toradol] Allergy ANXIETY Verified 08/22/23 06:59 Penicillins Allergy Unknown Verified 08/22/23 06:59 Childhood Physical Exam Vitals: Vital Signs Temp Pulse Resp BP Pulse Ox 08/23/23 07:53 98.1 F 88 17 137/78 98 08/23/23 02:00 98.0 F 94 18 143/89 97 08/22/23 21:00 103 H 18 08/22/23 20:00 97.5 F L 103 H 18 166/97 97 08/22/23 15:27 97.4 F L 105 H 16 138/86 96 08/22/23 15:00 100 16 140/81 95 08/22/23 14:30 103 H 16 142/81 95 08/22/23 14:00 108 H 20 130/69 95 08/22/23 13:30 98 18 135/66 94 L 08/22/23 13:00 110 H 18 133/72 95 08/22/23 12:30 99 16 138/76 97 Intake and Output 08/22/23 08/23/23 08/23/23 22:59 06:59 14:59 Other: # Voids 1 1 Weight 121 kg PHYSICAL EXAMINATION: Patient is lying in the bed comfortably, no acute distress, awake alert and oriented.. HEENT: Normocephalic. Neck is supple. Pupils reactive. Nostrils clear. Oral cavity is moist. Neck reveals no JVD, carotid bruits, or thyromegaly. CHEST EXAMINATION: Trachea is central. Symmetrical expansion. Bibasilar diminished sounds. Otherwise lung perez clear to auscultation and percussion. CARDIAC: Normal S1, S2 with no gallops. No murmurs ABDOMEN: Soft. Bowel sounds normal. No organomegaly. No abdominal bruits. Extremities: reveal no edema. No clubbing or cyanosis Neurologically awake, alert, oriented x3 with well-coordinated movements. No focal deficits noted Skin: No rash or skin lesions. Psychiatric: Coperative. Nonsuicidal Musculoskeletal: No joint swelling or deformity. Normal range of motion. Results CBC & Chem 7: 08/23/23 04:39 08/23/23 04:39 Labs: Abnormal Lab Results - Last 24 Hours (Table) 08/22/23 08/22/23 08/23/23 Range/Units 16:31 21:05 04:39 WBC (4.50-10.00) X 10*3/uL Immature Gran # (0.00-0.04) X 10*3/uL Neutrophils # (1.80-7.70) X 10*3/uL Eosinophils # (0.04-0.35) X 10*3/uL Carbon Dioxide (21.6-31.8) mmol/L Anion Gap (4.00-12.00) mmol/L BUN (9.0-27.0) mg/dL Creatinine (0.6-1.5) mg/dL POC Glucose (mg/dL) 190 H 144 H (70-110) mg/dL Hemoglobin A1c 9.1 H (<=6.0) % Calcium (8.7-10.3) mg/dL 08/23/23 08/23/23 08/23/23 Range/Units 04:39 04:39 12:00 WBC 17.23 H (4.50-10.00) X 10*3/uL Immature Gran # 0.08 H (0.00-0.04) X 10*3/uL Neutrophils # 14.76 H (1.80-7.70) X 10*3/uL Eosinophils # 0.03 L (0.04-0.35) X 10*3/uL Carbon Dioxide 12.2 L (21.6-31.8) mmol/L Anion Gap 19.80 H (4.00-12.00) mmol/L BUN <3.5 L (9.0-27.0) mg/dL Creatinine 0.5 L (0.6-1.5) mg/dL POC Glucose (mg/dL) 177 H (70-110) mg/dL Hemoglobin A1c (<=6.0) % Calcium 8.3 L (8.7-10.3) mg/dL Assessment and Plan Assessment: Status post sleeve gastrectomy postoperative day 1 and Leukocytosis likely postsurgical inflammation Anion gap metabolic acidosis Hyperglycemia uncontrolled diabetes type 2 A1c 9.1 patient is [id number] Hypertension Morbid obesity with BMI 47.3 Asthma not in exacerbation Osteoarthritis DVT prophylaxis with Lovenox subcu Plan: Patient will be continued on IV hydration with normal saline. Continue with DuoNebs and encourage incentive spirometry. Metformin is on hold due to acidosis and will be continued on insulin sliding scale. Follow-up CBC and BMP. Follow-up lactic acid level. Further recommendations based on the clinical course. Thank you kindly for your consult. Time with Patient: Greater than 30
[2023-08-24] MEDS: MAGNESIUM SULFATE-D5W PMX 1 GM in DEXTROSE/WATER 1 100ML.BAG IVPB ONE (03:26)
[2023-08-24 06:41] LABS: Glucose,Whole Blood 193 mg/dL (70-110)
[2023-08-24] MEDS: PANTOPRAZOLE 40 MG TABLET PO SCH (06:51)
[2023-08-24] MEDS: TIRZEPATIDE 12.5 MG/0.5 ML SQ SCH (07:54)
[2023-08-24 08:00] VITALS: TEMP 97.2
[2023-08-24] MEDS ORDERED: bisacodyL 5 MG TABLET.DR PO PRN (08:00)
[2023-08-24 08:40] LABS: Basophils # (A) 0.01 X 10*3/uL (0.00-0.10); Basophils % (A) 0.1 %; Eosinophils # (A) 0 X 10*3/uL (0.04-0.35); Eosinophils % (A) 0 %; HCT 43.3 % (37.2-46.3); HGB 13.9 g/dL (12.0-15.0); Lymphocytes # (A) 1.04 X 10*3/uL (0.90-5.00); Lymphocytes % (A) 7.9 %; MCH 28.4 pg (27.0-32.0); MCHC 32.1 g/dL (32.0-37.0); MCV 88.5 FL (80.0-97.0); Mean Platelet Volume 11.5 FL (9.5-12.2); Monocytes # (A) 0.17 X 10*3/uL (0.20-1.00); Monocytes % (A) 1.3 %; NRBC Per 100 WBC 0 X 10*3/uL (0.00-0.01); Neutrophils # (A) 11.83 X 10*3/uL (1.80-7.70); Neutrophils % (A) 90.4 %; Platelet Count 385 X 10*3/uL (140-440); RBC 4.89 X 10*6/uL (4.10-5.20); RDW 13.7 % (11.5-14.5); WBC 13.09 X 10*3/uL (4.50-10.00)
[2023-08-24 09:22] LABS: Blood Urea Nitrogen 5.8 mg/dL (9.0-27.0); Calcium 8.9 mg/dL (8.7-10.3); Carbon Dioxide 18.4 mmol/L (21.6-31.8); Chloride 106 mmol/L (96-109); Glucose 195 mg/dL (70-110); Potassium 4.6 mmol/L (3.5-5.5); Sodium 138 mmol/L (135-145)
[2023-08-24] MEDS: MONTELUKAST 10 MG TAB PO SCH (09:42)
[2023-08-24 11:34] LABS: Glucose,Whole Blood 206 mg/dL (70-110)
[2023-08-24 14:09] VITALS: BP 115/71; PULSE 84; RESP 18
--- NOTE | 2023-08-24 14:31 | P.DS ---
Providers Date of admission: 08/23/23 14:08 Expected date of discharge: 08/24/23 Attending physician: Brant Arguelles Consults: 08/22/23 11:53 Consult Physician Routine Consulting Provider: Shanthi Davies Consult Reason/Comments: Medical management Do you want consulting provider notified?: Yes Primary care physician: Manolo Delacruz Hospital Course: Discharge diagnosis 1. Morbid obesity, diabetes, hypercholesterolemia, hypertension, PCOS, arthritis Hospital course This is a 42-year-old female with history of morbid obesity. She is status post laparoscopic sleeve gastrectomy. Upper GI shows no evidence of leak or obstruction. Patient is tolerating diet. She has been up and ambulating. She is having flatus. Denies any difficulty urinating. She is afebrile. She is st able for discharge. Please refer to chart for any further details. Physician Fly Setter note has been reviewed by physician. Signing provider agrees with the documented findings, assessment, and plan of care. Patient Condition at Discharge: Stable Plan - Discharge Summary Discharge Rx Participant: Yes New Discharge Prescriptions: New bisacodyL [Dulcolax] 5 mg PO DAILY PRN #10 tab PRN Reason: Constipation Simethicone 40 mg/0.6 ml Drops [Mylicon Drops] 40 mg PO PCHS PRN #30 ml PRN Reason: Gas Omeprazole [PriLOSEC] 40 mg PO DAILY #90 cap HYDROcodone/APAP 5-325MG [Closplint 5-325] 1 tab PO Q6HR PRN 2 Days #5 tab PRN Reason: Pain Ondansetron Odt [Zofran Odt] 4 mg PO Q8HR PRN #9 tab PRN Reason: Nausea No Action Losartan [Cozaar] 25 mg PO QAM Atorvastatin [Lipitor] 20 mg PO HS Montelukast [Singulair] 10 mg PO DAILY metFORMIN HCL [Glucophage] 1,000 mg PO BID Omeprazole [PriLOSEC] 20 mg PO AC-BRKFST #90 cap Tirzepatide [Mounjaro] 12.5 mg SQ WE Discharge Medication List Atorvastatin [Lipitor] 20 mg PO HS 02/01/23 [History] Losartan [Cozaar] 25 mg PO QAM 02/01/23 [History] Montelukast [Singulair] 10 mg PO DAILY 02/01/23 [History] metFORMIN HCL [Glucophage] 1,000 mg PO BID 02/01/23 [History] Omeprazole [PriLOSEC] 20 mg PO AC-BRKFST #90 cap 03/29/23 [Rx] Tirzepatide [Mounjaro] 12.5 mg SQ WE 08/16/23 [History] HYDROcodone/APAP 5-325MG [Closplint 5-325] 1 tab PO Q6HR PRN 2 Days #5 tab 08/24/23 [Rx] Omeprazole [PriLOSEC] 40 mg PO DAILY #90 cap 08/24/23 [Rx] Ondansetron Odt [Zofran Odt] 4 mg PO Q8HR PRN #9 tab 08/24/23 [Rx] Simethicone 40 mg/0.6 ml Drops [Mylicon Drops] 40 mg PO PCHS PRN #30 ml 08/24/23 [Rx] bisacodyL [Dulcolax] 5 mg PO DAILY PRN #10 tab 08/24/23 [Rx] [facility] [facility] [place] [place] [facility] [place] 1 Week Activity/Diet/Wound Care/Special Instructions: No driving while taking Closplint No lifting over 10 pounds You may shower. No soaking or tub baths for 2 weeks Very light activity until you are reevaluated at your follow up appointment with your surgeon No straws or carbonated beverages Discharge Disposition: HOME SELF-CARE
--- NOTE | 2023-08-24 22:07 | P.PN ---
Subjective Patient is a 43-year-old female with a past medical history of diabetes type 2 fbz-[id number] on Tirzepatide, asthma, osteoarthritis and prior history of smoking and cholecystectomy was admitted to the hospital for sleeve gastrectomy. Patient is s/p sleeve gastrectomy postoperative day 1. Complaining of nausea. Patient is tolerating bariatric diet. No complaints of chest pain or shortness of breath. No fever no chills. No cough or sputum production. Denies any headache or dizziness. Laboratory data showed WBC 17.2 hemoglobin 13.1 and platelets 319 sodium 136 potassium 4.0 chloride 104 bicarb is 12.2 and anion gap 19.8 BUN less than 3.5 and creatinine 0.5 A1c 9.1 and magnesium 1.7. 08/24/23 patient clinically doing well She tolerates diet No vomiting Medically stable Objective - Vital Signs Vital signs: Vital Signs Temp 97.2 F L 08/24/23 07:15 Pulse 68 08/24/23 07:15 Resp 17 08/24/23 08:00 BP 96/62 08/24/23 07:15 Pulse Ox 98 08/24/23 07:15 FiO2 Intake & Output 08/23/23 08/24/23 08/24/23 18:59 06:59 18:59 Weight 121 kg Other: # Voids 1 4 - Exam GENERAL: The patient is alert and oriented x3, not in any acute distress. Well developed, well nourished. HEENT: Pupils are round and equally reacting to light. EOMI. No scleral icterus. No conjunctival pallor. Normocephalic, atraumatic. No pharyngeal erythema. No thyromegaly. CARDIOVASCULAR: S1 and S2 present. No murmurs, rubs, or gallops. PULMONARY: Chest is clear to auscultation, no wheezing , no crackles. ABDOMEN: Soft, nontender, nondistended, normoactive bowel sounds. No palpable organomegaly. MUSCULOSKELETAL: No joint swelling or deformity. EXTREMITIES: No cyanosis, clubbing, or pedal edema. NEUROLOGICAL: Gross neurological examination did not reveal any focal deficits. SKIN: No rashes. no petechiae. - Labs CBC & Chem 7: 08/24/23 03:47 08/24/23 03:47 Labs: Abnormal Lab Results - Last 24 Hours (Table) 08/23/23 08/23/23 08/24/23 Range/Units 16:41 21:02 03:47 WBC 13.09 H (4.50-10.00) X 10*3/uL Neutrophils # 11.83 H (1.80-7.70) X 10*3/uL Monocytes # 0.17 L (0.20-1.00) X 10*3/uL Eosinophils # 0 L (0.04-0.35) X 10*3/uL Carbon Dioxide (21.6-31.8) mmol/L Anion Gap (4.00-12.00) mmol/L BUN (9.0-27.0) mg/dL Creatinine (0.6-1.5) mg/dL BUN/Creatinine Ratio (12.00-20.00) Ratio Glucose (70-110) mg/dL POC Glucose (mg/dL) 164 H 188 H (70-110) mg/dL 08/24/23 08/24/23 08/24/23 Range/Units 03:47 06:39 11:33 WBC (4.50-10.00) X 10*3/uL Neutrophils # (1.80-7.70) X 10*3/uL Monocytes # (0.20-1.00) X 10*3/uL Eosinophils # (0.04-0.35) X 10*3/uL Carbon Dioxide 18.4 L (21.6-31.8) mmol/L Anion Gap 13.60 H (4.00-12.00) mmol/L BUN 5.8 L (9.0-27.0) mg/dL Creatinine 0.5 L (0.6-1.5) mg/dL BUN/Creatinine Ratio 11.60 L (12.00-20.00) Ratio Glucose 195 H (70-110) mg/dL POC Glucose (mg/dL) 193 H 206 H (70-110) mg/dL Assessment and Plan Assessment: Status post sleeve gastrectomy postoperative day 1 and Leukocytosis likely postsurgical inflammation Anion gap metabolic acidosis Hyperglycemia uncontrolled diabetes type 2 A1c 9.1 patient is [id number]-[id number] Hypertension Morbid obesity with BMI 47.3 Asthma not in exacerbation Osteoarthritis Plan: Continue with liquid diet Continue with symptomatic treatment Pain controlled Surgery team following closely S/p IV fluid Labs and medication reviewed Patient is medically stable We recommend patient follow-up with PCP in 1 week after discharge
== END 2023-08-24 15:46 | disposition home or self-care (01) ==
LOC: OR 06:12 → 4SSUR 14:51 → OR 08-23 14:08 → 4SSUR 08-23 14:08
PROVIDERS: ADMIT Surgery; ATTEND Surgery
DX: E66.01 Morbid (severe) obesity due to excess calories (principal); K29.50 Unspecified chronic gastritis without bleeding; D72.829 Elevated white blood cell count, unspecified; E11.65 Type 2 diabetes mellitus with hyperglycemia; E78.00 Pure hypercholesterolemia, unspecified; I10 Essential (primary) hypertension; E28.2 Polycystic ovarian syndrome; M19.90 Unspecified osteoarthritis, unspecified site; E87.20 Acidosis, unspecified; J45.909 Unspecified asthma, uncomplicated; Z68.42 Body mass index [BMI] 45.0-49.9, adult; Z87.891 Personal history of nicotine dependence; Z90.49 Acquired absence of other specified parts of digestive tract; Z79.85 Long-term (current) use of injectable non-insulin antidiabetic drugs; Z79.899 Other long term (current) drug therapy; Z79.84 Long term (current) use of oral hypoglycemic drugs; Z88.0 Allergy status to penicillin; Z88.6 Allergy status to analgesic agent
CPT/HCPCS: 43775; S2900; 74240; 80048; 80051; 81025; 82310; 82565; 83036; 83605; 83735; 84100; 84520; 85025; 88307; 96365; 96366; 96367; 96372; 96375; 96376

== ENCOUNTER → 2023-09-06 | Outpatient (CLI) | payer BC ==
[2023-09-06 13:04] VITALS: BP 106/70; PULSE 80; RESP 16; TEMP 98.5; BMI 43.7
--- NOTE | 2023-09-06 14:56 | P.BASOAP ---
Subjective Progress Note Date: 09/06/23 Principal diagnosis: Morbid obesity Patient returns for recheck. Sleeve gastrectomy performed 2 weeks ago. Day of surgery weight was 266 now 247. Heart rate today is 80. Minimal pain at the extraction site. Doing fairly well with her protein and liquid intake. Her primary care physician had her continue her antihypertensives and her metformin and Mounjaro. She sees them again in 2 days. Blood pressure has been a little bit on the low side. Some fatigue. No significant pain. No nausea or vomiting. No GERD. Objective - Vital Signs Vital signs: Vital Signs Temp 98.5 F 09/06/23 13:01 Pulse 80 09/06/23 13:01 Resp 16 09/06/23 13:01 BP 106/70 09/06/23 13:01 Pulse Ox FiO2 Intake & Output 09/05/23 09/06/23 09/06/23 18:59 06:59 18:59 Weight 112.037 kg - Exam Abdomen: Soft, nondistended, incisions clean and dry, mild tenderness at extraction site Assessment/Plan (1) Morbid obesity with BMI of 45.0-49.9, adult Narrative/Plan: Patient doing well after recent sleeve gastrectomy. Consider stopping antihypertensives and some of her diabetic medications. She will discuss this further with her primary care physician on 09/07. Continue monitoring fluid and protein intake. Follow-up 2 weeks. Plan: Date: 09/06/23 Initial Weight: 128.82 kg Initial BMI: 50.3 Current Weight: 112.037 kg Current BMI: 43.7 Type of Surgery: Total Volume in Band: Previous Volume: Volume Removed: Volume Added: Band Size:
== END ==
LOC: BARWHC3 12:47
PROVIDERS: ATTEND Surgery
DX: E66.01 Morbid (severe) obesity due to excess calories (principal); R53.83 Other fatigue; Z68.41 Body mass index [BMI] 40.0-44.9, adult; Z98.84 Bariatric surgery status; Z90.3 Acquired absence of stomach [part of]; Z88.0 Allergy status to penicillin; Z88.8 Allergy status to other drugs, medicaments and biological substances
CPT/HCPCS: 99211

== ENCOUNTER → 2023-10-04 | Outpatient (CLI) | payer BC ==
[2023-10-04 13:16] VITALS: BP 106/78; PULSE 99; TEMP 97.7; BMI 42.3
--- NOTE | 2023-10-04 13:30 | P.BASOAP ---
Subjective Progress Note Date: 10/04/23 Principal diagnosis: Morbid obesity Patient returns for recheck. Overall doing well. Denies pain. No GERD. Had 1 episode of vomiting to chicken when she ate real fast. She has lost 6 pounds. Today's heart rate 99. She had her 1 month labs performed however with the computer system being down we do not have access to it currently. She does complain of a masslike area involving the right lower chest wall. She says she never noticed this previously. [place]opda sized. Objective - Vital Signs Vital signs: Vital Signs Temp 97.7 F 10/04/23 13:13 Pulse 99 10/04/23 13:13 Resp BP 106/78 10/04/23 13:13 Pulse Ox FiO2 Intake & Output 10/03/23 10/04/23 10/04/23 18:59 06:59 18:59 Weight 109.316 kg - Exam Abdomen: Soft, nontender, nondistended Chest: Right lower chest wall mass 5 x 5 cm Assessment/Plan (1) Morbid obesity with BMI of 45.0-49.9, adult Narrative/Plan: 42-year-old female doing well after recent sleeve gastrectomy. Will try to obtain her 1 month labs that were already drawn. Continue antiacid therapy for now. The mass right lower chest wall is new to her. Etiology unclear however likely represents lipoma. Options reviewed. Will schedule for surgical excision. Recheck with us 1 month. Plan: Date: 10/04/23 Initial Weight: 128.82 kg Initial BMI: 49.8 Current Weight: 109.316 kg Current BMI: 42.3 Type of Surgery: Total Volume in Band: Previous Volume: Volume Removed: Volume Added: Band Size:
== END ==
LOC: BARWHC3 12:58
PROVIDERS: ATTEND Surgery
CPT/HCPCS: 99211

== ENCOUNTER 2023-10-20 06:08 | Emergency (ER) | payer BC ==
[2023-10-20 06:14] VITALS: RESP 18
[2023-10-20] MEDS ORDERED: IOPAMIDOL CONTRAST (ORAL USE) VIAL PO PRN (06:30)
--- NOTE | 2023-10-20 06:37 | ED ---
Abdominal Pain HPI - General Chief Complaint: Abdominal Pain Stated Complaint: Gastric Sleeve Complication Time Seen by Provider: 10/20/23 06:17 Source: patient, RN notes reviewed Mode of arrival: ambulatory - History of Present Illness Initial Comments: 42 year old female presents to the emergency department with chief complaint of abdominal pain . patient states pain is 3-4/10 on a 10 point scale that began this weekend. She is SP gastric sleeve in August by Dr. Arguelles. Patient reports indigestion after eating, nausea, vomiting, diarrhea, and 50 lb weight loss. Patient denies any fevers or chills no complaints of chest pain or shortness of breath. Patient has no urinary symptoms. Patient states she recently progressed to full diet. She did contact her surgeon who recommended going back to liquid diet. Patient states she is unable to keep any liquids down at this point. She denies any hematemesis or coffee-ground emesis. MD Complaint: abdominal pain -: days(s) (5 days) Location: diffuse Radiation: none Migration to: no migration Severity scale (1-10): 3 Quality: aching Consistency: intermittent Improves With: nothing Worsens With: eating Context: other (SP gastric sleeve) - Related Data Home Medications Medication Instructions Recorded Confirmed Atorvastatin [Lipitor] 20 mg PO HS 02/01/23 10/05/23 Losartan [Cozaar] 25 mg PO QAM 02/01/23 10/05/23 Montelukast [Singulair] 10 mg PO DAILY 02/01/23 10/05/23 metFORMIN HCL [Glucophage] 1,000 mg PO BID 02/01/23 10/05/23 Previous Rx's Medication Instructions Recorded Omeprazole [PriLOSEC] 40 mg PO DAILY #90 cap 08/24/23 Ondansetron Odt [Zofran Odt] 4 mg PO Q8HR PRN #14 tab 10/20/23 Allergies Allergy/AdvReac Type Severity Reaction Status Date / Time ketorolac [From Toradol] Allergy ANXIETY Verified 10/20/23 06:14 Penicillins Allergy Unknown Verified 10/20/23 06:14 Childhood Review of Systems ROS Statement: Those systems with pertinent positive or pertinent negative responses have been documented in the HPI. ROS Other: All systems not noted in ROS Statement are negative. Past Medical History Past Medical History: Asthma, Diabetes Mellitus, Osteoarthritis (OA) Additional Past Medical History / Comment(s): pcos. History of Any Multi-Drug Resistant Organisms: None Reported Past Surgical History: Bariatric Surgery, Section, Cholecystectomy Additional Past Surgical History / Comment(s): EGD, laprascopic gastric sleeve 08-22-23. Past Anesthesia/Blood Transfusion Reactions: Motion Sickness Additional Past Anesthesia/Blood Transfusion Reaction / Comment(s): POST EPIDURAL, HYPOTENSIVE. Past Psychological History: No Psychological Hx Reported Smoking Status: Former smoker Past Alcohol Use History: None Reported Past Drug Use History: None Reported - Past Family History Mother Family Medical History: No Reported History General Exam Limitations: no limitations General appearance: alert, in no apparent distress Head exam: Present: atraumatic Eye exam: Present: normal appearance, PERRL, EOMI. Absent: scleral icterus, conjunctival injection, periorbital swelling ENT exam: Present: normal exam, mucous membranes moist Neck exam: Present: normal inspection, full ROM. Absent: tenderness, meningismus, lymphadenopathy Respiratory exam: Present: normal lung sounds bilaterally. Absent: respiratory distress, wheezes, rales, rhonchi, stridor Cardiovascular Exam: Present: regular rate, normal rhythm, normal heart sounds. Absent: systolic murmur, diastolic murmur, rubs, gallop, clicks GI/Abdominal exam: Present: soft, tenderness (Mild epigastric), normal bowel sounds. Absent: distended, guarding, rebound, rigid Extremities exam: Present: normal inspection, full ROM, normal capillary refill. Absent: tenderness, pedal edema, joint swelling, calf tenderness Back exam: Present: normal inspection Neurological exam: Present: alert, oriented X3, CN II-XII intact Psychiatric exam: Present: normal affect, normal mood Skin exam: Present: warm, dry, intact, normal color. Absent: rash Course Vital Signs 10/20/23 10/20/23 06:11 08:12 Temperature 97.9 F 98.3 F Pulse Rate 82 76 Respiratory 18 18 Rate Blood Pressure 111/77 107/60 O2 Sat by Pulse 98 97 Oximetry Medical Decision Making - Medical Decision Making Was pt. sent in by a medical professional or institution (, PA, GARNETT MACHINE OPERATOR, urgent care, hospital, or usp...) When possible be specific @ -No Did you speak to anyone other than the patient for history (EMS, parent, family, police, friend...)? What history was obtained from this source @ -No Did you review nursing and triage notes (agree or disagree)? Why? @ -I reviewed and agree with nursing and triage notes Were old charts reviewed (outside hosp., previous admission, EMS record, old EKG, old radiological studies, urgent care reports/EKG's, usp records)? Report findings @ -Reviewed prior surgical labs Differential Diagnosis (chest pain, altered mental status, abdominal pain women, abdominal pain men, vaginal bleeding, weakness, fever, dyspnea, syncope, headache, dizziness, GI bleed, back pain, seizure, CVA, palpatations, mental health, musculoskeletal)? @ -Differential Abdominal Pain Women: Appendicitis, Cholecystitis, diverticulosis, ischemic bowel, pancreatitis, hepatitis, UTI, gastroenteritis, AAA, incarcerated hernia, bowel obstruction, c onstipation, inflammatory bowel, hepatitis, peptic ulcer disease, splenic infarction, perforated viscus, vulvitis, ovarian torsion, PID, kidney stone, placenta abruption, this is not meant to be an all-inclusive list EKG interpreted by me (3pts min.). @ -none X-rays interpreted by me (1pt min.). @ -None done CT interpreted by me (1pt min.). @ -CT abdomen pelvis showing no postsurgical complications no acute intra- abdominal process U/S interpreted by me (1pt. min.). @ -None done What testing was considered but not performed or refused? (CT, X-rays, U/S, labs)? Why? @ -None What meds were considered but not given or refused? Why? @ -None Did you discuss the management of the patient with other professionals (professionals i.e. , PA, GARNETT MACHINE OPERATOR, lab, RT, psych nurse, bilingual social worker, dishwasher preparer, teacher, driver's license reviewing officer, piano case and bench assembler)? Give summary @ -No Was smoking cessation discussed for >3mins.? @ -No Was critical care preformed (if so, how long)? @ -No Were there social determinants of health that impacted care today? How? (Homelessness, low income, unemployed, alcoholism, drug addiction, angel sportation, low edu. Level, literacy, decrease access to med. care, long-term, rehab)? @ -No Was there de-escalation of care discussed even if they declined (Discuss DNR or withdrawal of care, Hospice)? DNR status @ -No What co-morbidities impacted this encounter? (DM, HTN, Smoking, COPD, CAD, Cancer, CVA, ARF, Chemo, Hep., AIDS, mental health diagnosis, sleep apnea, morbid obesity)? @ -None Was patient admitted / discharged? Hospital course, mention meds given and route, prescriptions, significant lab abnormalities, going to OR and other pertinent info. @ -Discharged patient feels greatly improved with IV fluids and antiemetics patient's laboratory studies and CT unremarkable patient will follow-up with surgeon return plans discussed Undiagnosed new problem with uncertain prognosis? @ -No Drug Therapy requiring intensive monitoring for toxicity (Heparin, Nitro, Insulin, Cardizem)? @ -No Were any procedures done? @ -No Diagnosis/symptom? @ -[Nausea vomiting, abdominal pain Acute, or Chronic, or Acute on Chronic? @ -Acute Uncomplicated (without systemic symptoms) or Complicated (systemic symptoms)? @ -Uncomplicated Side effects of treatment? @ -No Exacerbation, Progression, or Severe Exacerbation? @ -No Poses a threat to life or bodily function? How? (Chest pain, [place], NE, pneumonia, PE, COPD, DKA, ARF, appy, cholecystitis, CVA, Diverticulitis, Homicidal, Suicidal, threat to staff... and all critical care pts) @ -No - Lab Data Result diagrams: 10/20/23 06:41 10/20/23 06:41 Lab Results 10/20/23 10/20/23 10/20/23 Range/Units 06:41 06:41 06:41 WBC 9.3 (3.8-10.6) k/uL RBC 4.51 (3.80-5.40) m/uL Hgb 12.9 (11.4-16.0) gm/dL Hct 39.2 (34.0-46.0) % MCV 86.9 (80.0-100.0) fL MCH 28.6 (25.0-35.0) pg MCHC 32.9 (31.0-37.0) g/dL RDW 14.4 (11.5-15.5) % Plt Count 279 (150-450) k/uL MPV 9.4 Neutrophils % 66 % Lymphocytes % 23 % Monocytes % 5 % Eosinophils % 4 % Basophils % 1 % Neutrophils # 6.1 (1.3-7.7) k/uL Lymphocytes # 2.1 (1.0-4.8) k/uL Monocytes # 0.5 (0-1.0) k/uL Eosinophils # 0.3 (0-0.7) k/uL Basophils # 0.1 (0-0.2) k/uL Sodium 139 (137-145) mmol/L Potassium 4.1 (3.5-5.1) mmol/L Chloride 106 (98-107) mmol/L Carbon Dioxide 25 (22-30) mmol/L Anion Gap 8 mmol/L BUN 7 (7-17) mg/dL Creatinine 0.52 (0.52-1.04) mg/dL Est GFR (CKD-EPI)AfAm >90 (>60 ml/min/1.73 sqM) Est GFR (CKD-EPI)NonAf >90 (>60 ml/min/1.73 sqM) Glucose 139 H (74-99) mg/dL Plasma Lactic Acid Karan 0.9 (0.7-2.0) mmol/L Calcium 9.5 (8.4-10.2) mg/dL Total Bilirubin 0.5 (0.2-1.3) mg/dL AST 24 (14-36) U/L ALT 32 (4-34) U/L Alkaline Phosphatase 40 (38-126) U/L Total Protein 5.8 L (6.3-8.2) g/dL Albumin 3.6 (3.5-5.0) g/dL Lipase 68 (23-300) U/L Urine Color Urine Appearance (Clear) Urine pH (5.0-8.0) Ur Specific [place] (1.001-1.035) Urine Protein (Negative) Urine Glucose (UA) (Negative) Urine Ketones (Negative) Urine Blood (Negative) Urine Nitrite (Negative) Urine Bilirubin (Negative) Urine Urobilinogen (<2.0) mg/dL Ur Leukocyte Esterase (Negative) Urine RBC (0-5) /hpf Urine WBC (0-5) /hpf Ur Squamous Epith Cells (0-4) /hpf Urine Mucus (None) /hpf 10/20/23 Range/Units 08:11 WBC (3.8-10.6) k/uL RBC (3.80-5.40) m/uL Hgb (11.4-16.0) gm/dL Hct (34.0-46.0) % MCV (80.0-100.0) fL MCH (25.0-35.0) pg MCHC (31.0-37.0) g/dL RDW (11.5-15.5) % Plt Count (150-450) k/uL MPV Neutrophils % % Lymphocytes % % Monocytes % % Eosinophils % % Basophils % % Neutrophils # (1.3-7.7) k/uL Lymphocytes # (1.0-4.8) k/uL Monocytes # (0-1.0) k/uL Eosinophils # (0-0.7) k/uL Basophils # (0-0.2) k/uL Sodium (137-145) mmol/L Potassium (3.5-5.1) mmol/L Chloride (98-107) mmol/L Carbon Dioxide (22-30) mmol/L Anion Gap mmol/L BUN (7-17) mg/dL Creatinine (0.52-1.04) mg/dL Est GFR (CKD-EPI)AfAm (>60 ml/min/1.73 sqM) Est GFR (CKD-EPI)NonAf (>60 ml/min/1.73 sqM) Glucose (74-99) mg/dL Plasma Lactic Acid Karan (0.7-2.0) mmol/L Calcium (8.4-10.2) mg/dL Total Bilirubin (0.2-1.3) mg/dL AST (14-36) U/L ALT (4-34) U/L Alkaline Phosphatase (38-126) U/L Total Protein (6.3-8.2) g/dL Albumin (3.5-5.0) g/dL Lipase (23-300) U/L Urine Color Colorless Urine Appearance Clear (Clear) Urine pH 5.5 (5.0-8.0) Ur Specific [place] 1.019 (1.001-1.035) Urine Protein Negative (Negative) Urine Glucose (UA) Negative (Negative) Urine Ketones Negative (Negative) Urine Blood Moderate H (Negative) Urine Nitrite Negative (Negative) Urine Bilirubin Negative (Negative) Urine Urobilinogen <2.0 (<2.0) mg/dL Ur Leukocyte Esterase Trace H (Negative) Urine RBC 1 (0-5) /hpf Urine WBC 6 H (0-5) /hpf Ur Squamous Epith Cells 6 H (0-4) /hpf Urine Mucus Rare H (None) /hpf Disposition Clinical Impression: Abdominal pain, Nausea & vomiting Disposition: HOME SELF-CARE Condition: Stable Instructions (If sedation given, give patient instructions): Abdominal Pain (ED) Additional Instructions: Please return to the Emergency Department if symptoms worsen or any other concerns. Prescriptions: Ondansetron Odt [Zofran Odt] 4 mg PO Q8HR PRN #14 tab PRN Reason: Nausea Is patient prescribed a controlled substance at d/c from ED?: No Referrals: Manolo Delacruz MD [Primary Care Provider] - 1-2 days Time of Disposition: 10:04
[2023-10-20] MEDS: ONDANSETRON 4 MG/2 ML VIAL IVP STA (06:49)
[2023-10-20] MEDS: SODIUM CHLORIDE 0.9% 1,000 ML IV STA (06:51)
[2023-10-20 06:54] LABS: Basophils # (A) 0.1 k/uL (0-0.2); Basophils % (A) 1 %; Eosinophils # (A) 0.3 k/uL (0-0.7); Eosinophils % (A) 4 %; HCT 39.2 % (34.0-46.0); HGB 12.9 gm/dL (11.4-16.0); Lymphocytes # (A) 2.1 k/uL (1.0-4.8); Lymphocytes % (A) 23 %; MCH 28.6 pg (25.0-35.0); MCHC 32.9 g/dL (31.0-37.0); MCV 86.9 fL (80.0-100.0); Mean Platelet Volume 9.4; Monocytes # (A) 0.5 k/uL (0-1.0); Monocytes % (A) 5 %; Neutrophils # (A) 6.1 k/uL (1.3-7.7); Neutrophils % (A) 66 %; Platelet Count 279 k/uL (150-450); RBC 4.51 m/uL (3.80-5.40); RDW 14.4 % (11.5-15.5); WBC 9.3 k/uL (3.8-10.6)
[2023-10-20 07:21] LABS: Potassium 4.1 mmol/L (3.5-5.1)
[2023-10-20 07:22] LABS: ALT 32 U/L (4-34); AST 24 U/L (14-36); African American GFR (CKD) >90 (>60 ml/min/1.73 sqM); Albumin 3.6 g/dL (3.5-5.0); Alkaline Phosphatase 40 U/L (38-126); Anion Gap 8 mmol/L; Blood Urea Nitrogen 7 mg/dL (7-17); Calcium 9.5 mg/dL (8.4-10.2); Carbon Dioxide 25 mmol/L (22-30); Chloride 106 mmol/L (98-107); Glucose 139 mg/dL (74-99); Lipase 68 U/L (23-300); Non-African American GFR(CKD) >90 (>60 ml/min/1.73 sqM); Sodium 139 mmol/L (137-145); Total Bilirubin 0.5 mg/dL (0.2-1.3); Total Protein 5.8 g/dL (6.3-8.2)
--- NOTE | 2023-10-20 08:47 | CT ---
EXAMINATION TYPE: CT abdomen pelvis w con DATE OF EXAM: 10/20/2023 COMPARISON: NONE HISTORY: 42-year-old female ABD PAIN TECHNIQUE: Contiguous axial scanning of the abdomen and pelvis following administration of 100 ml Iso jennifer 300 IV contrast. Delayed images through the kidneys and coronal/sagittal reconstructions perform ed. CT DLP: 2090.2 mGycm Automated exposure control for dose reduction was used. FINDINGS: The heart is normal size without pericardial effusion. Strandy atelectasis in the lower samuel gs, right greater than left. Postsurgical change of sleeve gastrectomy. No abnormal extravasation of contrast is seen and no signi ficant inflammation is seen along the surgical site. Liver enlarged at 22.8 cm. Mild diminished attenuation in the hepatic parenchyma. Portal venous syste m is patent. No biliary ductal dilatation. Cholecystectomy clips. Adrenal glands, kidneys, spleen, and pancreas within normal limits. No dilated small bowel, free fluid, or free air. No mesenteric or retroperitoneal lymphadenopathy. Normal appendix. Mild stool burden. No pericolonic inflammatory change. Mildly redundant sigmoid colo n. Bladder partially distended. Uterus anteverted. Follicular changes in the ovaries. Left-sided pelvic phlebolith. No abnormal fluid collection in the pelvis or pelvic lymphadenopathy. Bones: Mild facet arthropathy lower lumbar spine. No osseous destructive process. IMPRESSION: 1. NO ACUTE INFLAMMATORY PROCESS IDENTIFIED IN THE ABDOMEN OR PELVIS TO EXPLAIN THE PATIENT'S SYMPTOM S. 2. Hepatomegaly at 22.8 cm. Suspect underlying fatty infiltration. 3. Status post cholecystectomy and sleeve gastrectomy.
[2023-10-20 09:32] LABS: Appearance,Urine Clear (Clear); Bilirubin,Urine Negative (Negative); Blood,Urine Moderate (Negative); Color,Urine Colorless; Glucose,Urine (UA) Negative (Negative); Ketones,Urine Negative (Negative); Leukocyte Esterase,Urine Trace (Negative); Mucus,Urine Rare /hpf; Nitrite,Urine Negative (Negative); PH, Urine 5.5 (5.0-8.0); Protein,Urine Negative (Negative); RBC,Urine 1 /hpf (0-5); Specific Gravity,Urine 1.019 (1.001-1.035); Squamous Epithelial Cell,Urine 6 /hpf (0-4); Urobilinogen,Urine <2.0 mg/dL (<2.0); WBC,Urine 6 /hpf (0-5)
[2023-10-20 11:25] VITALS: BP 117/84; PULSE 67; TEMP 98
== END 2023-10-20 11:16 | disposition home or self-care (01) ==
LOC: EC 06:08
CPT/HCPCS: 36415; 74177; 80053; 81001; 83605; 83690; 85025; 96361; 96374; 99284

== ENCOUNTER → 2023-11-15 | Outpatient (CLI) | payer BC ==
[2023-11-15 13:05] VITALS: BP 117/72; PULSE 77; TEMP 98; BMI 38.6
--- NOTE | 2023-11-15 15:37 | P.BASOAP ---
Subjective Progress Note Date: 11/15/23 Principal diagnosis: Morbid obesity Patient returns for recheck. Underwent sleeve gastrectomy in August. Apparently she went to the ER with complaints of some dizziness. She had some vomiting issues. She had some sick contacts that had the flu. Her blood pressure was somewhat low. She was discharged home. A CAT scan was performed and I reviewed this. No problems with the sleeve noted. Patient remains on antiacids. No significant heartburn. She has lost 21 pounds since her last visit. She is due for 3-month labs. Her symptoms of nausea has completely resolved. Objective - Vital Signs Vital signs: Vital Signs Temp 98 F 11/15/23 13:02 Pulse 77 11/15/23 13:02 Resp BP 117/72 11/15/23 13:02 Pulse Ox FiO2 Intake & Output 11/14/23 11/15/23 11/15/23 18:59 06:59 18:59 Weight 99.79 kg - Exam Abdomen: Soft, nontender, nondistended Assessment/Plan (1) Morbid obesity with BMI of 45.0-49.9, adult Narrative/Plan: 42-year-old female doing well at this time. Continue dietary and exercise regimen. Continue antiacids for now. Check 3-month labs. Follow-up 6 weeks. Plan: Date: 11/15/23 Initial Weight: 128.82 kg Initial BMI: 49.8 Current Weight: 99.79 kg Current BMI: 38.6 Type of Surgery: Total Volume in Band: Previous Volume: Volume Removed: Volume Added: Band Size:
== END | disposition home or self-care (01) ==
LOC: BARWHC3 12:34
PROVIDERS: ATTEND Surgery
DX: E66.01 Morbid (severe) obesity due to excess calories
CPT/HCPCS: 99211

== ENCOUNTER → 2023-12-02 | Outpatient (CLI) | payer BC ==
[2023-12-02 15:10] LABS: HCT 44.1 % (37.2-46.3); HGB 14.1 g/dL (12.0-15.0); MCH 28.2 pg (27.0-32.0); MCV 88.2 FL (80.0-97.0); Mean Platelet Volume 11.9 FL (9.5-12.2); NRBC Per 100 WBC 0 X 10*3/uL (0.00-0.01); Platelet Count 292 X 10*3/uL (140-440); RDW 13.9 % (11.5-14.5); WBC 8.89 X 10*3/uL (4.50-10.00)
[2023-12-02 15:46] LABS: % Iron Saturation 11.66 (12.00-45.00); Blood Urea Nitrogen 10.5 mg/dL (9.0-27.0); Carbon Dioxide 22.8 mmol/L (21.6-31.8); Chloride 106 mmol/L (96-109); Glucose 112 mg/dL (70-110); Iron 40 UG/DL (50-170); Potassium 4.3 mmol/L (3.5-5.5); Sodium 139 mmol/L (135-145); Total Iron Binding Capacity 343 UG/DL (228-460)
[2023-12-02 15:47] LABS: ALT 17 U/L (8-44); AST 14 U/L (13-35); Albumin/Globulin Ratio 1.82 Ratio (1.60-3.17); Alkaline Phosphatase 46 U/L (41-126); Calcium 9.8 mg/dL (8.7-10.3); Globulin 2.2 g/dL (1.6-3.3); Total Bilirubin 0.2 mg/dL (0.3-1.2); Total Protein 6.2 g/dL (6.2-8.2)
== END | disposition home or self-care (01) ==
LOC: LABWHC1 07:46
PROVIDERS: ATTEND Surgery
CPT/HCPCS: 36415; 80053; 82306; 82607; 82746; 83036; 83540; 83550; 84425; 85027

== ENCOUNTER → 2024-01-03 | Outpatient (CLI) | payer BC ==
[2024-01-03 09:07] VITALS: BP 117/78; PULSE 88; TEMP 97.8; BMI 35.6
--- NOTE | 2024-01-03 09:34 | P.BASOAP ---
Subjective Progress Note Date: 01/03/24 Principal diagnosis: Morbid obesity Patient here today after her sleeve gastrectomy in August. Patient doing well. Last seen 6 weeks ago. She has lost 17 pounds. No more dizziness episodes. Denies GERD. Sometimes has some fullness if she eats too fast. No vomiting. Takes omeprazole about 3 times per week. Labs were checked last visit which shows mild low iron at 40. Taking vitamin with iron supplements. Does not take her vitamins regularly. Objective - Vital Signs Vital signs: Vital Signs Temp 97.8 F 01/03/24 09:04 Pulse 88 01/03/24 09:04 Resp BP 117/78 01/03/24 09:04 Pulse Ox FiO2 Intake & Output 01/02/24 01/03/24 01/03/24 18:59 06:59 18:59 Weight 92.079 kg - Exam Abdomen: Soft, nontender, nondistended Assessment/Plan (1) Morbid obesity with BMI of 45.0-49.9, adult Narrative/Plan: Patient doing well after sleeve gastrectomy in August. Continue omeprazole every other day. Try taking vitamins daily. Recheck labs next visit. Follow-up 6 to 8 weeks. Plan: Date: 01/03/24 Initial Weight: 128.82 kg Initial BMI: 49.8 Current Weight: 92.079 kg Current BMI: 35.6 Type of Surgery: Total Volume in Band: Previous Volume: Volume Removed: Volume Added: Band Size:
== END ==
LOC: BARWHC3 08:44
PROVIDERS: ATTEND Surgery
DX: E66.01 Morbid (severe) obesity due to excess calories (principal); Z98.84 Bariatric surgery status; Z68.35 Body mass index [BMI] 35.0-35.9, adult; Z88.8 Allergy status to other drugs, medicaments and biological substances; Z88.0 Allergy status to penicillin
CPT/HCPCS: 99211

== ENCOUNTER → 2024-04-16 | Outpatient (CLI) | payer BC ==
[2024-04-16 15:17] LABS: HCT 40.8 % (37.2-46.3); HGB 13.5 g/dL (12.0-15.0); MCHC 33.1 g/dL (32.0-37.0); MCV 87.6 FL (80.0-97.0); Mean Platelet Volume 11.6 FL (9.5-12.2); NRBC Per 100 WBC 0 X 10*3/uL (0.00-0.01); Platelet Count 313 X 10*3/uL (140-440); RBC 4.66 X 10*6/uL (4.10-5.20); RDW 13.7 % (11.5-14.5); WBC 7.73 X 10*3/uL (4.50-10.00)
[2024-04-16 15:55] LABS: ALT 15 U/L (8-44); AST 13 U/L (13-35); Albumin 4.2 g/dL (3.8-4.9); Albumin/Globulin Ratio 1.75 Ratio (1.60-3.17); Alkaline Phosphatase 41 U/L (41-126); BUN/Creat Ratio 23.33 Ratio (12.00-20.00); Calcium 9.7 mg/dL (8.7-10.3); Carbon Dioxide 23.9 mmol/L (21.6-31.8); Chloride 106 mmol/L (96-109); Globulin 2.4 g/dL (1.6-3.3); Glucose 88 mg/dL (70-110); Potassium 4.6 mmol/L (3.5-5.5); Sodium 141 mmol/L (135-145); Total Bilirubin 0.3 mg/dL (0.3-1.2); Total Protein 6.6 g/dL (6.2-8.2)
[2024-04-16 17:13] LABS: Iron 74 UG/DL (50-170)
== END | disposition home or self-care (01) ==
LOC: LABWHC1 11:45
PROVIDERS: ATTEND Surgery
DX: K90.9 Intestinal malabsorption, unspecified (principal); E55.9 Vitamin D deficiency, unspecified
CPT/HCPCS: 36415; 80053; 82306; 82607; 82746; 83540; 84425; 85027

== ENCOUNTER → 2024-04-17 | Outpatient (CLI) | payer BC ==
[2024-04-17 14:55] VITALS: BP 113/80; PULSE 125; RESP 16; TEMP 97.4; BMI 30.9
--- NOTE | 2024-04-17 15:12 | P.BASOAP ---
Subjective Progress Note Date: 04/17/24 Principal diagnosis: Morbid obesity patient returns for routine recheck. Last seen in December. Has done well with her weight loss. She is down to 176 at this time. Unfortunately she woke up this morning feeling sick. Her daughter is also sick. She did have some vomiting today. Her heart rate is elevated. She is she feels tired. Denies abdominal pain. No fevers. Labs were checked routinely yesterday and they look good. Objective - Vital Signs Vital signs: Vital Signs Temp 97.4 F L 04/17/24 14:53 Pulse 125 H 04/17/24 14:53 Resp 16 04/17/24 14:53 BP 113/80 04/17/24 14:53 Pulse Ox FiO2 Intake & Output 04/16/24 04/17/24 04/17/24 18:59 06:59 18:59 Weight 79.832 kg - Exam Abdomen: Soft, nontender, nondistended Assessment/Plan (1) Morbid obesity with BMI of 45.0-49.9, adult Narrative/Plan: Patient doing well as a pertains to her weight loss surgery at this time. Unfortunately today it sounds like she has a viral flu illness. Continue hydration. Monitor symptoms closely. She will contact me if she is having any persistent difficulties. Follow-up 2 months. Plan: Date: 04/17/24 Initial Weight: 128.82 kg Initial BMI: 49.8 Current Weight: 79.832 kg Current BMI: 30.9 Type of Surgery: Total Volume in Band: Previous Volume: Volume Removed: Volume Added: Band Size:
== END ==
LOC: BARWHC3 14:42
PROVIDERS: ATTEND Surgery
DX: E66.01 Morbid (severe) obesity due to excess calories (principal); Z68.42 Body mass index [BMI] 45.0-49.9, adult; Z88.6 Allergy status to analgesic agent; Z88.0 Allergy status to penicillin
CPT/HCPCS: 99211

== ENCOUNTER → 2024-05-04 | Outpatient (CLI) | payer BC ==
--- NOTE | 2024-05-04 13:00 | MM ---
Reason for Exam: Screening (asymptomatic). Last mammogram was performed 6 year(s) and 8 month(s) ago. Patient History: Menarche at age 14. First Full-Term at age 27. Premenopausal. Currently using Hormonal Contraceptives, for 15 years. Risk Values: Rebeka 5 year model risk: 0.7%. NCI Lifetime model risk: 9.9%. Prior Study Comparison: 08/11/2017 Bilateral Screening Mammogram, [facility]. Tissue Density: The breasts are heterogeneously dense, which may obscure small masses. Findings: Analyzed By CAD. There is no suspicious group of microcalcifications or new suspicious mass in either breast. Benign-appearing calcifications. Overall Assessment: Benign, BI-RAD 2 Management: Screening Mammogram of both breasts in 1 year. . Patient should continue monthly self-breast exams. A clinical breast exam by your physician is recommended on an annual basis. This exam should not preclude additional follow-up of suspicious palpable abnormalities. Note on Rebeka scores and lifetime risk: 1. A Rebeka score greater than 3% is considered moderate risk. If this is the case, consider specialist referral to assess eligibility for a risk reducing agent. 2. If overall lifetime risk for the development of breast cancer is 20% or higher, the patient may qualify for future screening with alternating mammogram and breast MRI. [facility], , 05/04/2024 12:57 PM. Electronically signed and approved by: Db Sales M.D. [facility]
== END | disposition home or self-care (01) ==
LOC: RADMAMWWP 11:45
PROVIDERS: ATTEND Family Medicine
DX: Z12.31 Encounter for screening mammogram for malignant neoplasm of breast (principal); R92.333 Mammographic heterogeneous density, bilateral breasts; R92.1 Mammographic calcification found on diagnostic imaging of breast; Z92.0 Personal history of contraception
CPT/HCPCS: 77063; 77067

== ENCOUNTER → 2024-08-13 | Outpatient (CLI) | payer BC ==
[2024-08-13 15:40] LABS: BUN/Creat Ratio 20.67 Ratio (12.00-20.00); Blood Urea Nitrogen 12.4 mg/dL (9.0-27.0); Glucose 94 mg/dL (70-110); Iron 71 UG/DL (50-170)
[2024-08-13 15:41] LABS: ALT 20 U/L (8-44); AST 15 U/L (13-35); Albumin 3.9 g/dL (3.8-4.9); Albumin/Globulin Ratio 1.77 Ratio (1.60-3.17); Alkaline Phosphatase 36 U/L (41-126); Anion Gap 9.60 mmol/L (4.00-12.00); Calcium 9.3 mg/dL (8.7-10.3); Carbon Dioxide 24.4 mmol/L (21.6-31.8); Chloride 107 mmol/L (96-109); Globulin 2.2 g/dL (1.6-3.3); Potassium 4.0 mmol/L (3.5-5.5); Sodium 141 mmol/L (135-145); Total Protein 6.1 g/dL (6.2-8.2); Vitamin B12 650.0 pg/mL (200.0-944.0)
[2024-08-13 16:00] LABS: HCT 40.5 % (37.2-46.3); HGB 13.0 g/dL (12.0-15.0); MCH 28.8 pg (27.0-32.0); MCHC 32.1 g/dL (32.0-37.0); MCV 89.6 FL (80.0-97.0); NRBC Per 100 WBC 0 X 10*3/uL (0.00-0.01); Platelet Count 299 X 10*3/uL (140-440); RBC 4.52 X 10*6/uL (4.10-5.20); RDW 13.7 % (11.5-14.5); WBC 8.60 X 10*3/uL (4.50-10.00)
== END | disposition home or self-care (01) ==
LOC: LABWHC1 12:22
PROVIDERS: ATTEND Surgery
DX: E66.01 Morbid (severe) obesity due to excess calories (principal); K90.0 Celiac disease; E55.9 Vitamin D deficiency, unspecified
CPT/HCPCS: 36415; 80053; 82306; 82607; 82746; 83540; 84425; 85027

== ENCOUNTER → 2024-08-14 | Outpatient (CLI) | payer BC ==
[2024-08-14 13:50] VITALS: BP 113/74; PULSE 78; RESP 16; TEMP 98.2; BMI 27.2
--- NOTE | 2024-08-14 14:02 | P.BASOAP ---
Subjective Progress Note Date: 08/14/24 Principal diagnosis: Morbid obesity Patient returns for recheck. Doing well. Last seen 2 to 3 months ago. Working out from home now. No antiacid use. No GERD. No vomiting. Remains on Mounjaro. Denies nausea. Patient had annual lab work yesterday which looked good. She has lost 2 pounds since her last visit. Objective - Vital Signs Vital signs: Vital Signs Temp 98.2 F 08/14/24 13:47 Pulse 78 08/14/24 13:47 Resp 16 08/14/24 13:47 BP 113/74 08/14/24 13:47 Pulse Ox FiO2 Intake & Output 08/13/24 08/14/24 08/14/24 18:59 06:59 18:59 Weight 70.307 kg - Exam Abdomen: Soft, nontender, nondistended Assessment/Plan (1) Morbid obesity with BMI of 45.0-49.9, adult Narrative/Plan: Patient doing well at this time. Continue dietary and exercise regimen. Decision to wean off of GLP-1 agonist per primary service. Recheck 1 year. Plan: Date: 08/14/24 Initial Weight: 128.82 kg Initial BMI: 49.8 Current Weight: 70.307 kg Current BMI: 27.2 Type of Surgery: Vertical Sleeve Gastrectomy Total Volume in Band: Previous Volume: Volume Removed: Volume Added: Band Size:
== END ==
LOC: BARWHC3 13:42
PROVIDERS: ATTEND Surgery
DX: E66.01 Morbid (severe) obesity due to excess calories (principal); Z68.27 Body mass index [BMI] 27.0-27.9, adult; Z88.0 Allergy status to penicillin; Z88.6 Allergy status to analgesic agent
CPT/HCPCS: 99211